=== PATIENT | male | born 1940 | race Caucasian/White ===

== ENCOUNTER 2024-04-22 13:16 | Inpatient (IN) | payer MEDICARE, SELFPAY ==
[2024-04-22] VITALS (18 sets, daily range): BP systolic 147–165; BP diastolic 54–94; PULSE 63–82; RESP 10–24; TEMP 36.1–36.6; O2SAT 94–99; BMI 28.0
--- NOTE | ~2024-04-22 | MR_ITS ---
EXAMINATION: MR brain/brain stem wo/w con DATE: 04/23/2024 07:57 INDICATION: Cerebrovascular accident. TECHNIQUE: Magnetic resonance imaging (MRI) of the brain and brainstem was performed without and with 17 mL MultiHance intravenous contrast. COMPARISON: Head CT 04/14/2024 FINDINGS: There is an acute infarct involving left frontal lobe and left insula. Decreased T2*-weight ed signal intensity in this volume may be calcification or microhemorrhage. There is an old infarct i n left frontoparietal region. There is no abnormal mass lesion. There are scattered areas of nonspeci fic increased T2-weighted signal intensity in the cerebral white matter, which is within normal limit s for the patient's age. The ventricles are normal in size. The orbits are normal. The paranasal sinu ses are clear. The mastoid air cells are normal. IMPRESSION: 1. Acute infarct involving left frontal lobe and left insula. Decreased T2*-weighted signal intensity in this volume may be calcification or microhemorrhage. 2. Old infarct in left frontoparietal region. Reviewed, dictated and finalized at location A. IMPRESSION: 1. Acute infarct involving left frontal lobe and left insula. Decreased T2*-lazaro ghted signal intensity in this volume may be calcification or microhemorrhage. 2. Old infarct in left frontoparietal region.
--- NOTE | ~2024-04-22 | US_ITS ---
EXAMINATION: US venous doppler [facility] DATE: 04/23/2024 08:46 INDICATION: Lower limb pain and edema. TECHNIQUE: Grayscale ultrasound images without and with compression and Doppler ultrasound images of the bilateral lower extremity veins were obtained. COMPARISON: None. FINDINGS: The visualized portions of right common femoral vein, profunda (deep) femoral vein, femoral vein, pop liteal vein, peroneal veins, posterior tibial veins, and greater saphenous vein outflow are patent. The visualized portions of left common femoral vein, profunda femoral vein, femoral vein, popliteal v ein, peroneal veins, posterior tibial veins, and greater saphenous vein outflow are patent. IMPRESSION: 1. No deep venous thrombosis. Reviewed, dictated and finalized at location A.
--- NOTE | ~2024-04-22 | CT_ITS ---
CTA brain carotid Ordering provider: Teodoro Muniz MD History: . CVA . Comparison: None. Technique: CT angiogram head and neck was performed following timed intravenous injection of contrast . Thin slice axial images and reformatted coronal images were obtained. Three dimensional reformatted images of the brain were also obtained using a [employer] workstation. Radiation reduction technique ut ilized. DLP is 1793.21 mGy-cm. 100 mL Omnipaque 350 was given IV. FINDINGS: HEAD: --ANTERIOR AND MIDDLE CEREBRAL ARTERIES AND BRANCHES: Normal caliber and contour. --INTERNAL CAROTID ARTERIES: Mild atheromatous disease but no significant stenosis. No occlusion. --BASILAR ARTERY AND BRANCHES: Dominant left vertebral artery. Normal caliber and contour. No atherom atous disease. --POSTERIOR CEREBRAL ARTERIES: Normal caliber and contour --POSTERIOR COMMUNICATING ARTERIES: The right isn't demonstrated. The left is not visualized which is probably related to congenital absence or small size. --ANEURYSM: None visualized. --BRAIN: Deep white matter ischemic changes with mild brain atrophy. No acute intracranial process. E mpty sella turcica. --BONES AND SUPERFICIAL SOFT TISSUES: Normal.. --PARANASAL SINUSES AND MASTOIDS: Normal. NECK: --RIGHT CERVICAL CAROTID SYSTEM: Mild atheromatous disease of the carotid bulb and proximal internal carotid artery without significant stenosis. Percent stenosis per NASCET criteria is 60%. No carotid dissection. Otherwise, no significant atheromatous disease or stenosis of the cervical carotid syste m. --LEFT CERVICAL CAROTID SYSTEM: Mild atheromatous disease of the carotid bulb and proximal internal c arotid artery without significant stenosis. Percent stenosis per NASCET criteria is 40%. No carotid dissection. Otherwise, no significant atheromatous disease or stenosis of the cervical carotid system. --VERTEBRAL ARTERIES: Dominant left vertebral artery. Otherwise, Normal caliber and contour. --VISUALIZED AORTIC ARCH AND BRANCHING VESSELS: Mild atheromatous disease but no significant stenosis . --SOFT TISSUES: Normal. --CERVICAL SPINE: Age appropriate degenerative changes. IMPRESSION: 1. CTA head and neck. Percent stenosis per NASCET criteria is 60% on the right and 40% on the left. 2. No evidence of intracerebral arterial occlusion or significant stenosis. Reviewed, dictated and finalized at location A. IMPRESSION: 1. CTA head and neck. Percent stenosis per NASCET criteria is 60% on the righ t and 40% on the left. 2. No evidence of intracerebral arterial occlusion or significant stenosis.
--- NOTE | 2024-04-22 13:19 | ED.NEUROSD ---
HPI - Neuro Symptoms/Deficit General Chief Complaint: Suspected CVA Stated Complaint: cva History of Present Illness HPI Narrative: 83-year-old male prior history of CVA presented emergency department for evaluation for confusion and speech change. Apparently patient's brother last saw the patient at 8:30 a.m. this morning and he was at his normal baseline. Patient's got home from being out of town at 12:30 p.m. found him altered. Patient's arrival to the emergency department was greater than 4.5 hours after time of onset. Patient is able to follow some commands and has no focal deficit for arms or legs but does have facial droop with speech deficit. Patient does take Plavix. Patient had previously stopped his aspirin due to increased bleeding from minor injuries. Related Data Home Medications Medication Instructions Recorded Confirmed amlodipine 10 mg tablet 10 mg PO DAILY 04/22/24 04/22/24 atorvastatin 80 mg tablet 80 mg PO DAILY 04/22/24 04/22/24 blood sugar diagnostic ([id number] 04/22/24 04/22/24 Ultra Test strips) clopidogrel 75 mg tablet 75 mg PO DAILY 04/22/24 04/22/24 gabapentin 100 mg capsule 100 mg PO DAILY 04/22/24 04/22/24 insulin degludec 200 unit/mL (3 See Rx Instructions .Route .COMPLEX 04/22/24 04/22/24 mL) subcutaneous pen (Tresiba FlexTouch U-200 insulin) metformin 500 mg tablet,extended 500 mg PO DAILY 04/22/24 04/22/24 release 24 hr Allergies Allergy/AdvReac Type Severity Reaction Status Date / Time gemfibrozil Allergy Difficulty Verified 04/22/24 14:58 Breathing lisinopril Allergy Anaphylaxis Verified 04/22/24 14:58 Review of Systems Review of Systems: All systems reviewed & are unremarkable except as noted in HPI and below PMFSH Past Medical History Medical History (Updated 04/22/24 @ 15:58 by Samara Stock PA-C) Bilateral carotid artery stenosis Cerebrovascular accident Hyperlipidemia Hypertension Prostate cancer Type 2 diabetes mellitus Surgical History Surgical History (Updated 04/22/24 @ 15:50 by Samara Stock PA-C) History of prostatectomy Family History Family History Other Diabetes mellitus Hypertension Social History Social History (Updated 04/22/24 @ 15:55 by Samara Stock PA-C) Social History: Healthcare power of attorney at law: Robel Vaz, son. Code status: Full code. Years smoked: 20 Smoking status: Former smoker Tobacco type: cigarettes Second hand tobacco smoke exposure: No Additional smoking assessment comments: Remote smoker. Alcohol intake: current Drinks per week: 14 Alcohol use details: Drinks a 6 pack of beer most nights of the week. Substance use: never Do You Feel Safe in your Home?: Yes Lack of Transportation: No Lack of Food: Never True Current Housing: I Have Housing Concerned About Future Housing: No Difficulty Paying Gas/Electric Bills: No Difficulty Paying for Meds: No Currently Unemployed: No Education: High School Diploma/GED Difficulty w/ Childcare or Family Care: No Additional living arrangements comments: Lives with son Robel and [id number]-fzj Edith in [place]. 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 Exam Narrative: APPEARANCE: Well appearing, no pain, no distress, well-nourished. HEAD: normocephalic, atraumatic. EYES: PERRLA/EOMI, conjunctivae clear. NOSE: Normal no drainage EARS:TMS clear with good light reflex. THROAT: Pharynx clear, no exudate. NECK: Supple. No adenopathy, no masses. RESPIRATORY: Airway patent, respirations nonlabored. Clear to auscultation bilaterally, no rales, rhonchi, wheezing. CARDIOVASCULAR: Regular rate and rhythm without murmurs rubs or gallops. ABDOMINAL: Soft, nontender, nondistended, normal bowel sounds MUSCULOSKELETAL: Moves all extremities. Strength/ROM intact, No edema, No calf tenderness. NEURO: No focal defici
[2024-04-22 13:27] LABS: Basophils Percent Auto 0.3 % (0.2-1.2); Eosinophils Absolute Auto 0.2 K/mm3 (0-0.3); Eosinophils Percent Auto 1.6 % (0-4.4); Hemoglobin 14.8 g/dL (14.0-18.0); Immature Granulocyte Absolute 0.01 K/mm3 (0.00-0.031); Immature Granulocyte Percent A 0.1 % (0-0.5); Lymphocytes Absolute Auto 3.61 K/mm3 (0.9-3.2); Lymphocytes Percent Auto 37.6 % (18.3-44.2); Mean Corpuscular HGB Conc 34.4 g/dl (32-36); Mean Corpuscular Hemoglobin 32.9 pg (26-34); Mean Corpuscular Volume 95.6 fl (80-100); Mean Platelet Volume 10.7 fl (7.4-10.4); Monocytes Absolute Auto 0.5 K/mm3 (0.1-0.6); Monocytes Percent Auto 5.5 % (2.6-8.5); Neutrophils Absolute Auto 5.3 K/mm3 (1.3-6.7); Neutrophils Percent Auto 54.9 % (45.5-73.1); Platelet Count Result 145 k/mm3 (150-375); Red Cell Distribution Width 13.4 % (11.5-14.5); White Blood Count 9.6 K/mm3 (4.5-10.0)
--- NOTE | 2024-04-22 13:29 | ECG_ITS ---
Test Date: 2024-04-22 13:21:00 Measurements Intervals [place] Rate: P: 0 OK: 0 QRS: 0 QRSD: 0 T: 0 QT: 0 QTc: 0 Interpretive Statements SINUS RHYTHM ATRIAL PREMATURE COMPLEX DELAYED PRECORDIAL R/S TRANSITION BASELINE ARTIFACT- I, II, AVR, V1-V6 BORDERLINE ECG No previous ECG available for comparison Electronically Signed On 04-22-2024 15:12:57 CDT by Rafa Herr D.O.
[2024-04-22 13:35] LABS: Estimated Glomerular Filt Rate > 60
[2024-04-22 13:36] LABS: Alanine Aminotransferase 25 U/L (6-50); Albumin Level 4.7 g/dL (3.5-5.1); Alkaline Phosphatase 53 U/L (38-126); Anion Gap 10 mmol/L (4-12); Aspartate Amino Transferase 26 U/L (17-59); Bilirubin,Total 0.7 mg/dL (0.2-1.3); Blood Urea Nitrogen 12 mg/dL (9-20); Calcium 9.4 mg/dL (8.4-10.2); Carbon Dioxide 28 mmol/L (22-30); Chloride 97 mmol/L (98-107); Estimated Glomerular Filt Rate > 60; Glucose 197 mg/dL (65-110); Potassium 4.4 mmol/L (3.4-5.0); Sodium 135 mmol/L (137-145)
[2024-04-22 13:37] LABS: Prothrombin Time 13.4 Seconds (11.1-14.7)
[2024-04-22 13:38] LABS: Partial Thromboplastin Time 24.6 Seconds (22.3-36.8)
--- NOTE | 2024-04-22 13:40 | PC.NURSE ---
Per Son, patient had lost some strength and sensation in right upper arm from previous stroke.
--- NOTE | 2024-04-22 14:28 | PM.IMHP ---
H&P: HPI History of Present Illness Date/Time: 04/22/24 14:30 Chief Complaint: Difficulties speaking. Narrative: This is a very pleasant 83-year-old male with history of stroke with very mild residual paresthesias in the right hand, hypertension, hyperlipidemia, and type 2 diabetes mellitus who presented to the emergency department via EMS from home for evaluation of difficulties speaking. He is able to provide some history however that is limited due to his speech disturbances and his son and eakmahqi-zl-icj provide additional information with the patient's permission. The patient lives with his son Robel and his xasjmnyd-sj-gmm Edith and they were out of town camping this weekend. Another son has been checking up on him and last saw the patient in his usual state of health at about 08:30 today. Robel and Edith returned home at about 12:30 and the patient was sitting in a recliner watching television. It was at that time they noticed his speech disturbance and a majority of the things that he utters is not coherent. On arrival to triage he apparently had a right-sided facial droop though that is not evident at the time my evaluation. He is able to get a few words out here and there which son states is an improvement. There are no other obvious deficits and the patient denies vertigo, vision changes, difficulty swallowing, focal weakness, and worsening paresthesias in his right hand. He also denies palpitations and sensations of irregular heartbeat. He has not had any recent illnesses or falls. In the ED: He was afebrile on arrival with a blood pressure of 156/71. EKG showed a sinus rhythm with occasional PACs and delayed R/S transition. Labs were significant for WBC count of 9.6, hemoglobin 14.8, platelet 145, sodium 135, chloride 97, glucose 197. CTA of the head and neck showed no evidence of intracerebral arterial occlusion or significant stenosis and% stenosis per NASCET is 60% on the right and 40% on the left. Deep white matter ischemic changes with mild brain atrophy were noted as well as an empty sella turcica with no acute intracranial process. He is outside of the window for thrombolytics and CTA showed no findings that would need to be intervened upon. Dr. Ibarra (on-call neurologist) recommends admission for close monitoring and further workup. The patient was given aspirin 324 mg (he took his morning clopidogrel 75 mg today) and he is being admitted in this setting. Review of Systems Review of Systems: 12 systems were reviewed and are negative except for as per HPI. [facility] Past Medical History Medical History (Updated 04/22/24 @ 15:58 by Samara Stock PA-C) Bilateral carotid artery stenosis Cerebrovascular accident Hyperlipidemia Hypertension Prostate cancer Type 2 diabetes mellitus Surgical History Surgical History (Updated 04/22/24 @ 15:50 by Samara Stock PA-C) History of prostatectomy Family History Family History Other Diabetes mellitus Hypertension Social History Social History (Updated 04/22/24 @ 15:55 by Samara Stock PA-C) Social History: Healthcare power of trial attorney: Robel Vaz, son. Code status: Full code. Smoking status: Former smoker Additional smoking assessment comments: Remote smoker. Alcohol intake: current Alcohol use details: Drinks a 6 pack of beer most nights of the week. Substance use: never Additional living arrangements comments: Lives with son Robel and [id number] Edith in [place]. 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 Meds Home Medications and Allergies Allergies Allergy/AdvReac Type Severity Reaction Status Date / Time gemfibrozil Allergy Difficulty Verified 04/22/24 14:58 Breathing lisinopril Allergy Anaphylaxis Verified 04/22/24 14:58 Vital Signs Vital Signs - 24 hr 04/22/24 13:17 04/22/24 13:25 04/22/24 13:36 Temp
[2024-04-22 14:29] LABS: Appearance Urine Clear (Clear); Bilirubin Urine Negative (Negative); Blood Urine Negative (Negative); Color Urine Yellow (Yellow); Glucose Urine UA 1+ mg/dL (Negative); Ketones Urine Negative (Negative); Leukocyte Esterase Ur Negative LEU/UL (Negative); Nitrate Urine Negative (Negative); Protein Urine Negative (Negative); Specific Grav Ur 1.022 (1.001-1.035); Urobilinogen Urine 0.2 mg/dL (<2.0); pH Urine 7.5 (5.0-9.0)
[2024-04-22 14:30] LABS: Add Urine Microscopic? NO
[2024-04-22] MEDS: ASPIRIN 81 MG CHEWABLE TABLET 324 MG PO (14:53)
--- NOTE | 2024-04-22 14:55 | PC.NURSE ---
Per madyson Alonso for patient to have PO aspirin
--- NOTE | 2024-04-22 15:33 | ADMGEN ---
This patient, Jose Vaz, was admitted to 2 Medical Room 253-01. Patient/family oriented to hospital policies and general routines including ID bracelet, bed and alarms, visiting hours, pain management, procedures, bathroom and other care routines, personal items, smoking policy, room service/diet, and visiting hours. Information on how to activate the Rapid Response Team has been discussed. Patient/Family are encouraged to report perceived risks to care and to ask questions if they do not understand what they are told or what they should do.
[2024-04-22 16:49] LABS: Glucose Point of Care 124 mg/dl (65-105)
[2024-04-22 19:58] LABS: Glucose Point of Care 144 mg/dl (65-105)
[2024-04-23] VITALS (9 sets, daily range): BP systolic 134–155; BP diastolic 59–72; PULSE 61–96; RESP 16–18; TEMP 36.2–36.4; O2SAT 95–98
--- NOTE | 2024-04-23 | ECHO_ITS ---
Patient Info Name: Jose Vaz Age: 83 years : 1940 Gender: Male Ht: 70 in Wt: 195 lbs BSA: 2.11 m2 HR: 72 bpm BP: 155 / 60 mmHg Heart Rhythm: Sinus Rhythm Technical Quality: Good Exam Date: 04/23/2024 11:54 AM Exam Location: Echo Lab Patient Status: Inpatient Admit Date: 04/22/2024 Staff Ordering Physician: Samara Stock PA-C Boatswains Mate: Jyoti Long RDCS Attending Provider: Kelechi Maher MD Referring Physician: Dayami PARDO; Exam Type: CA echo doppler w bubble study Study Info Indications - STROKE Complete two-dimensional, color flow and Doppler transthoracic echocardiogram is performed. Summary 1. Complete two-dimensional, color flow and Doppler transthoracic echocardiogram is performed. 2. Normal left ventricular size and systolic contractility with grade 1 diastolic noncompliance. 3. Mild left atrial enlargement. 4. Mildly calcified mitral valve annular. 5. No valvular dysfunction. 6. No shunt seen on agitated saline contrast injection. Left Ventricle Left ventricular chamber dimension is normal. Left ventricular systolic function is normal, estimated at 60-65%. The left ventricular diastolic function is grade I diastolic dysfunction. Right Ventricle Right ventricular chamber dimension is normal. Left Atria Left atrial chamber dimension is mildly enlarged. Right Atria Right atrial chamber dimension is normal. Atrial Septum Intact interatrial septum visualized by agitated saline imaging. Aortic Valve The aortic valve is trileaflet. There is mild aortic valve sclerosis. Pulmonic Valve The pulmonic valve is normal. Mitral Valve The mitral valve has normal leaflets. The mitral valve annulus is mildly calcified. Tricuspid Valve The tricuspid valve leaflets are normal. Pericardium/Pleural The pericardium appears normal. Aorta The aortic root size at the sinus of Valsalva is normal. Left Ventricular Outflow Tract Name Value Normal LVOT 2D LVOT Diameter 2.0 cm LVOT Doppler LVOT Peak Gradient 4 mmHg LVOT Mean Gradient 2 mmHg LVOT VTI 30 cm LVOT VTI/AV VTI Ratio 0.9 LVOT Stroke Volume 96 ml LVOT CO 5.9 l/min LVOT CI 2.8 l/min/m2 Pulmonic Valve Name Value Normal PV Doppler PV Peak Gradient 3 mmHg Mitral Valve Name Value Normal MV Doppler MV Decel [place] 284 cm/s2 MV PHT 79 ms MV Area (PHT) 2.8 cm2 4.0-5.0 MV Di
[2024-04-23 05:21] LABS: Hemoglobin A1C 6.8 % (<5.7)
[2024-04-23 05:24] LABS: Anion Gap 8 mmol/L (4-12); Blood Urea Nitrogen 9 mg/dL (9-20); Calcium 9.2 mg/dL (8.4-10.2); Carbon Dioxide 31 mmol/L (22-30); Chloride 97 mmol/L (98-107); Cholesterol 135 mg/dL (0-200); Estimated CRCL calculation 69 ml/min; Estimated Glomerular Filt Rate > 60; Glucose 75 mg/dL (65-110); HDL Direct 56 mg/dL; Potassium 3.7 mmol/L (3.4-5.0); Sodium 136 mmol/L (137-145); Triglycerides 109 mg/dL (<150)
[2024-04-23 05:35] LABS: LDL Cholesterol Direct 46 mg/dL
--- NOTE | 2024-04-23 07:25 | PC.NURSE ---
Patient off unit for MRI.
--- NOTE | 2024-04-23 08:10 | PM.IMPN ---
Subjective Date/time seen: 04/23/24 08:10 Interval history: sdf Objective Data Vital Signs Vital Signs: Vital Signs - 24 hr 04/22/24 13:17 04/22/24 13:25 04/22/24 13:36 Temperature 97.8 F Pulse Rate 82 82 75 Respiratory Rate 17 12 Blood Pressure 156/71 H 156/72 H Pulse Oximetry 98 95 Oxygen Delivery 04/22/24 13:42 04/22/24 13:45 04/22/24 13:47 Temperature Pulse Rate 74 81 81 Respiratory Rate 10 L 21 H 15 Blood Pressure 165/94 H Pulse Oximetry Oxygen Delivery 04/22/24 14:00 04/22/24 14:32 04/22/24 14:33 Temperature Pulse Rate 68 81 77 Respiratory Rate 13 24 H 20 Blood Pressure 150/73 H Pulse Oximetry Oxygen Delivery 04/22/24 14:45 04/22/24 14:46 04/22/24 14:47 Temperature Pulse Rate 81 81 79 Respiratory Rate 19 13 18 Blood Pressure 158/75 H Pulse Oximetry 96 Oxygen Delivery 04/22/24 15:05 04/22/24 15:37 04/22/24 18:06 Temperature 97.9 F Pulse Rate 76 74 Respiratory Rate 16 18 Blood Pressure 155/81 H 147/55 H Pulse Oximetry 95 98 99 Oxygen Delivery Room Air 04/22/24 18:57 04/22/24 19:55 04/22/24 20:00 Temperature 97.0 F L Pulse Rate 67 63 63 Respiratory Rate 16 Blood Pressure 151/54 H Pulse Oximetry 94 Oxygen Delivery 04/22/24 20:00 04/23/24 00:00 04/23/24 04:00 Temperature Pulse Rate 61 67 Respiratory Rate Blood Pressure Pulse Oximetry Oxygen Delivery Room Air 04/23/24 06:00 Temperature 97.6 F Pulse Rate 72 Respiratory Rate 18 Blood Pressure 155/60 H Pulse Oximetry 98 Oxygen Delivery Intake/Output Intake/Output: Intake & Output 04/20/24 04/21/24 04/22/24 04/23/24 23:59 23:59 23:59 23:59 Intake Total 120 480 Balance 120 480 Meds/Results Medications: Active Medications Generic Name Dose Route Start Last Admin Trade Name Freq PRN Reason Stop Dose Admin Acetaminophen 650 mg 04/22/24 16:06 Acetaminophen 325 Mg Tablet PO Q6H PRN Mild Pain (1-3) or Fever Amlodipine Besylate 10 mg 04/23/24 09:00 Amlodipine Besylate 10 Mg Tablet PO DAILY [facility] Aspirin 81 mg 04/23/24 08:00 Aspirin 81 Mg Chewable Tablet PO DAILY@0800 [facility] Atorvastatin Calcium 80 mg 04/23/24 09:00 Atorvastatin 40 Mg Tablet PO DAILY [facility] Clopidogrel Bisulfate 75 mg 04/23/24 09:00 Clopidogrel Bisulfate 75 Mg Tablet PO DAILY [facility] Dextrose 12.5 gm 04/22/24 16:06 Dextrose 50% 25 Gm/50 Ml Syringe IV PUSH PRN PRN Hypoglycemia Protocol Gabapentin 100 mg 04/23/24 09:00 Gabapentin 100 Mg Capsule PO DAILY [facility] Glucagon 1 mg 04/22/24 16:06 Glucagon For Inj 1 Mg Vial IM PRN PRN Hypoglycemia Protocol Glucose 15 gm 04/22/24 16:06 Glucose Oral Gel 15 Gm Of Glucse In 37.5 Gm Tube PO PRN PRN Hypoglycemia Protocol Dextrose 1,000 mls @ 100 mls/hr 04/22/24 16:06 Dextrose 5% 1,000 Ml IVPB PRN PRN Hypoglycemia Protocol Insulin Aspart 2 - 5 units 04/22/24 17:00 04/22/24 18:59 Insulin Aspart (*Bkc) 100 Units/Ml SUB-Q Not Given TIDWM [facility] Protocol Insulin Aspart 1 - 2 units 04/22/24 21:00 04/22/24 20:18 Insulin Aspart (*Bkc) 100 Units/Ml SUB-Q Not Given HS [facility] Protocol Perflutren Lipid Microsphere 0 ml 04/22/24 16:06 Perflutren Lipid Microspheres 1.5 Ml Vial Diluted To 10 Ml Total Volume IV PUSH 04/25/24 16:06 ONCE PRN adequate visualization Protocol Radiology Results: ITS Impressions Head/Neck CTA 04/22/24 14:01 IMPRESSION: 1. CTA head and neck. Percent stenosis per NASCET criteria is 60% on the right and 40% on the left. 2. No evidence of intracerebral arterial occlusion or significant stenosis. Brain MRI 04/23/24 07:59 IMPRESSION: 1. Acute infarct involving left frontal lobe and left insula. Decreased T2*-weighted signal intensity in this volume may be calcification or microhemorrhage. 2. O
--- NOTE | 2024-04-23 08:44 | PC.NURSE ---
Patient returned to unit for MRI
[2024-04-23 08:52] LABS: Glucose Point of Care 87 mg/dl (65-105)
[2024-04-23] MEDS: GABAPENTIN 100 MG CAPSULE PO (09:25)
[2024-04-23] MEDS: amLODIPine BESYLATE 10 MG TABLET PO (09:25)
--- NOTE | 2024-04-23 11:20 | WPDNEURCNPN ---
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 (CVA): Code(s): I63.9 - Cerebral infarction, unspecified; R47.01 - Aphasia Status: Acute Assessment and Plan: patient has features of mixed aphasia with greater involvement of the expressive component (3) Type 2 diabetes mellitus: Code(s): E11.9 - Type 2 diabetes mellitus without complications Status: Acute (4) Hypertension: Code(s): I10 - Essential (primary) hypertension Status: Acute (5) Hyperlipidemia: Code(s): E78.5 - Hyperlipidemia, unspecified Status: Acute Plan I reviewed the current workup including MRI of the brain and CT angiogram of the head and neck and blood work including lipid profile appear platelet count was slightly low at 145. Patient should continue with the statin and Lipitor and with speech therapy. He has good support from the family Robel and Kenneth and I spoke to Edith about the stroke from neurologic perspective advised her to work with the speech therapist in this regard. Echocardiogram results pending. Patient however in her regular sinus rhythm. Last LDL was 46. Thank you very much for allowing me to see this patient. Consult date: 04/23/24 HPI: Jose Vaz is a 83 year old male Admitted to the hospital with onset of difficulty with speech which still has not resolved. History of previous stroke with a residual right hand weakness. Patient daughter in-law Edith was present at the time of the evaluation. Patient lives with his son Robel and daughter in-law. The patient has a significant difficulty understanding or saying what he wants to say or even reading except on occasion he may read part of the word have or a word but difficulty and making several errors. He did manage to say his mfhosudr-ry-lde's name and upon her command was able to show the tongue. Patient has hearing problems and he just received his hearing aid back this morning in-hospital and this info of course help. the day of admission his family report that he was okay at 8:30 a.m. in the morning when the left him and when they returned at 12:30 p.m. in the early afternoon he was not able to talk clearly. There are no other new neurologic symptoms specifically no additional weakness in the upper lower limbs was reported. He was brought to the hospital and CT angiogram head and neck was performed which shows 60% narrowing of the right internal carotid artery and 40% the left internal carotid artery. Subsequently MRI of the brain was performed which shows the left frontal and insular infarct and several old infarcts were noted. Patient also history of carcinoma of prostate and diabetes mellitus. His LDL was around 46 and he was found to be in regular sinus rhythm. There is no history of previous myocardial infarction or cardiac arrhythmia. He is currently on aspirin Plavix and Lipitor. He does drink 6 beers a day but does not smoke. Hemoglobin A1c was 6.8. Review of Systems Review of Systems: according to patient's daughter in-law he was in usual State of health prior to the onset of the new symptoms affecting his speech. He has been fairly active and does take care of his own personal needs well. The patient himself is unable to give me any details of the symptoms however he is fairly awake and alert and does try to concentrate and listen to the given commands. ROS unobtainable: Yes other [facility] Past Medical History Medical History (Updated 04/23/24 @ 11:32 by Jose Manuel Cobos MD) Aphasia due to acute cerebro
[2024-04-23 12:11] LABS: Glucose Point of Care 106 mg/dl (65-105)
--- NOTE | 2024-04-23 12:38 | PCPTNOTE ---
On 04/23/24, the student, [Shama Redding], provided care and completed [facility] documentation on this patient. I have reviewed the student's documentation and agree with the findings.
--- NOTE | 2024-04-23 14:25 | PM.IMPN ---
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 (CVA): Code(s): I63.9 - Cerebral infarction, unspecified; R47.01 - Aphasia Status: Acute (2) Left acute arterial ischemic stroke, MCA (middle cerebral artery): Code(s): I63.512 - Cerebral infarction due to unspecified occlusion or stenosis of left middle cerebral artery Status: Acute (3) Bilateral carotid artery stenosis: Code(s): I65.23 - Occlusion and stenosis of bilateral carotid arteries Status: Acute (4) Type 2 diabetes mellitus: Qualifiers: Diabetes mellitus complication detail: with unspecified neuropathy Diabetes mellitus complication status: with neurologic complications Diabetes mellitus custodial insulin use: with long winder tender use Qualified Code(s): E11.40 - Type 2 diabetes mellitus with diabetic neuropathy, unspecified; Z79.4 - senior care (current) use of insulin Code(s): E11.9 - Type 2 diabetes mellitus without complications Status: Acute (5) Hyperlipidemia: Qualifiers: Hyperlipidemia type: other hyperlipidemia Qualified Code(s): E78.49 - Other hyperlipidemia Code(s): E78.5 - Hyperlipidemia, unspecified Status: Acute (6) Hypertension: Qualifiers: Hypertension type: unspecified Qualified Code(s): I10 - Essential (primary) hypertension Code(s): I10 - Essential (primary) hypertension Status: Acute (7) Dysphasia: Code(s): R47.02 - Dysphasia Status: Acute (8) Cerebrovascular accident: Qualifiers: CVA mechanism: unspecified Qualified Code(s): I63.9 - Cerebral infarction, unspecified Code(s): I63.9 - Cerebral infarction, unspecified Status: Acute Plan The patient was admitted on 04/22 for evaluation of difficulty speaking .Pt had multiple CVA starting from the year 2017. During current admission, head and neck CTA did not show any large vessel occlusions however did show bilateral internal carotid artery stenosis (60% on the right and 40% on the left) . MRI done 04/23/2024 shows Acute infarct involving left frontal lobe and left insula. Decreased T2*-weighted signal intensity in this volume may be calcification or microhemorrhage. Old infarct in left frontoparietal region. Neurology was consulted and advised to continue on clopidogrel 75 mg daily, aspirin 81 mg daily,atorvastatin 80mg daily and speech therapy. Following PT/OT/ST recs. Echocardiogram ordered and still pending; he has no known history of symptoms to suggest underlying or paroxysmal atrial fibrillation. Blood pressures were reviewed and advised to continue the current medications. Hold metformin as he received IV contrast. Continue sliding scale insulin, Accu-Cheks, and hypoglycemic protocol. Hemoglobin A1c 6.8%. Findings and treatment plan were discussed with the patient and his htykakel-zp-lia who were at bedside with the patient's permission. On the event of discharge patient needs to follow up with Neurologist within 2 months and speech therapy as well. Subjective Date/time seen: 04/23/24 14:25 Interval history: This is a very pleasant 83-year-old male with history of stroke with very mild residual paresthesias in the right hand, hypertension, hyperlipidemia, and type 2 diabetes mellitus who presented to the emergency department via EMS from home for evaluation of difficulties speaking. He is able to provide some history however that is limited due to his speech disturbances and his son and [id number] provide additional information with the patient's permission. The patient lives with his son Robel and his hcwyhvmb-me-ulx Edith and they were out of town camping this weekend. Another son has been checking up on him and last saw the patient in his usual state of health at about 08:30 today. Robel and Edith returned home at about 12:30 and the patient was sitting in a recliner watching television. It was at that time they
[2024-04-23 17:12] LABS: Glucose Point of Care 96 mg/dl (65-105)
[2024-04-23] MEDS: LORazepam INJ (*CRX) 2 MG/ML VIAL 0.5 MG IV PUSH (17:53)
[2024-04-23 20:22] LABS: Glucose Point of Care 163 mg/dl (65-105)
[2024-04-24] VITALS (10 sets, daily range): BP systolic 114–148; BP diastolic 53–78; PULSE 59–80; RESP 16–18; TEMP 36–36.6; O2SAT 95–100
--- NOTE | 2024-04-24 04:44 | PC.NURSE ---
Patient activated bed alarm while exiting his bed; Patient sitter present in room and unable to redirect patient. RN attempted to assist, patient became combative, grabbed the RN's wrist and attempted to push RN into the hallway; staff experienced difficulty in redirecting patient behaviors. Patient ambulated into the hallway and was resistant to returning to his room. nursing instructor notified and assisted in redirecting patient back to his room. Will continue to monitor.
[2024-04-24] MEDS: ATORVASTATIN 40 MG TABLET 80 MG PO (09:00)
[2024-04-24] MEDS: amLODIPine BESYLATE 10 MG TABLET PO (09:00)
[2024-04-24] MEDS: GABAPENTIN 100 MG CAPSULE PO (09:01)
[2024-04-24] MEDS: CLOPIDOGREL BISULFATE 75 MG TABLET PO (09:01)
[2024-04-24] MEDS: ASPIRIN 81 MG CHEWABLE TABLET PO (09:01)
[2024-04-24 09:09] LABS: Glucose Point of Care 174 mg/dl (65-105)
--- NOTE | 2024-04-24 09:40 | PM.DS ---
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 He is able to provide some history however that is limited due to his speech disturbances and his son and [id number]-by-dzd provide additional information with the patient's permission. The patient lives with his son Robel and his xvycdluq-id-ash Edith and they were out of town camping this weekend. Another son has been checking up on him and last saw the patient in his usual state of health at about 08:30 today. Robel and Edith returned home at about 12:30 and the patient was sitting in a recliner watching television. It was at that time they noticed his speech disturbance and a majority of the things that he utters is not coherent. On arrival to triage he apparently had a right-sided facial droop though that is not evident at the time my evaluation. He is able to get a few words out here and there which son states is an improvement. There are no other obvious deficits and the patient denies vertigo, vision changes, difficulty swallowing, focal weakness, and worsening paresthesias in his right hand. He also denies palpitations and sensations of irregular heartbeat. He has not had any recent illnesses or falls. In the ED: He was afebrile on arrival with a blood pressure of 156/71. EKG showed a sinus rhythm with occasional PACs and delayed R/S transition. Labs were significant for WBC count of 9.6, hemoglobin 14.8, platelet 145, sodium 135, chloride 97, glucose 197. CTA of the head and neck showed no evidence of intracerebral arterial occlusion or significant stenosis and% stenosis per NASCET is 60% on the right and 40% on the left. Deep white matter ischemic changes with mild brain atrophy were noted as well as an empty sella turcica with no acute intracranial process. He is outside of the window for thrombolytics and CTA showed no findings that would need to be intervened upon. Dr. Ibarra (on-call neurologist) recommends admission for close monitoring and further workup. The patient was given aspirin 324 mg (he took his morning clopidogrel 75 mg today) and he is being admitted in this setting. ----- MR brain brain stem w/o w/ contrast on 04/23 1. Acute infarct involving left frontal lobe and left insula. Decreased T2*-weighted signal intensity in this volume may be calcification or microhemorrhage. 2. Old infarct in left frontoparietal region. ok by neurology to start aspirin. cont STUDENT COUNSELLOR plavix and lipitor. surface echo on 04/23: Summary 1. Complete two-dimensional, color flow and Doppler transthoracic echocardiogram is performed. 2. Normal left ventricular size and systolic contractility with grade 1 diastolic noncompliance. 3. Mild left atrial enlargement. 4. Mildly calcified mitral valve annular. 5. No valvular dysfunction. 6. No shunt seen on agitated saline contrast injection. lipid panel obtained. pt to follow up with neurology, PCP, and vascular surgery. discharged in stable condition to [facility] on 04/24 Time Spent with Patient Time attestation: Total time spent providing and/or coordinating discharge services: Time spent: Greater than 30 minutes Exam Const: General: comfortable and no acute distress HENMT: Mouth: Yes moist mucous membranes Eyes: Pupils:
[2024-04-24 11:39] LABS: Glucose Point of Care 140 mg/dl (65-105)
--- NOTE | 2024-04-24 12:19 | PCPTNOTE ---
Attempted to see patient for Physical Therapy. Patient was sleeping and patient's son was also in the room. Patient's son said that therapist could try waking him up. Therapist asked patient about participating in Physical Therapy. Patient fell back asleep after the therapist asked him. Patient's son reports that patient had a rough night last night. Patient's son stated that it was okay to keep letting him sleep. RN notified.
--- NOTE | 2024-04-24 14:11 | PCPTNOTE ---
Attempted to see patient for Physical Therapy this afternoon. Patient was laying in bed and his son was in the room. Therapist asked patient about walking or doing exercises and patient declined to do either. RN notified.
[2024-04-24 16:44] LABS: Glucose Point of Care 315 mg/dl (65-105)
[2024-04-24] MEDS: INSULIN ASPART (*BKC) 100 UNITS/ML SUB-Q (16:46)
[2024-04-24 21:53] LABS: Glucose Point of Care 174 mg/dl (65-105)
[2024-04-25] VITALS (10 sets, daily range): BP systolic 129–152; BP diastolic 54–68; PULSE 58–93; RESP 17–18; TEMP 36.5–36.7; O2SAT 95–98
[2024-04-25 07:51] LABS: Glucose Point of Care 152 mg/dl (65-105)
[2024-04-25] MEDS: amLODIPine BESYLATE 10 MG TABLET PO (08:54)
[2024-04-25] MEDS: ASPIRIN 81 MG CHEWABLE TABLET PO (08:54)
[2024-04-25] MEDS: GABAPENTIN 100 MG CAPSULE PO (08:54)
[2024-04-25] MEDS: ATORVASTATIN 40 MG TABLET 80 MG PO (08:54)
[2024-04-25] MEDS: CLOPIDOGREL BISULFATE 75 MG TABLET PO (08:54)
[2024-04-25 10:44] LABS: Glucose Point of Care 209 mg/dl (65-105)
--- NOTE | 2024-04-25 11:19 | PM.IMPN ---
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 (CVA): Code(s): I63.9 - Cerebral infarction, unspecified; R47.01 - Aphasia Status: Acute (2) Left acute arterial ischemic stroke, MCA (middle cerebral artery): Code(s): I63.512 - Cerebral infarction due to unspecified occlusion or stenosis of left middle cerebral artery Status: Acute (3) Bilateral carotid artery stenosis: Code(s): I65.23 - Occlusion and stenosis of bilateral carotid arteries Status: Acute (4) Type 2 diabetes mellitus: Qualifiers: Diabetes mellitus care home insulin use: with intermediate manager use Diabetes mellitus complication status: with neurologic complications Diabetes mellitus complication detail: with unspecified neuropathy Qualified Code(s): E11.40 - Type 2 diabetes mellitus with diabetic neuropathy, unspecified; Z79.4 - terminal makeup operator (current) use of insulin Code(s): E11.9 - Type 2 diabetes mellitus without complications Status: Acute (5) Hyperlipidemia: Qualifiers: Hyperlipidemia type: other hyperlipidemia Qualified Code(s): E78.49 - Other hyperlipidemia Code(s): E78.5 - Hyperlipidemia, unspecified Status: Acute (6) Hypertension: Qualifiers: Hypertension type: unspecified Qualified Code(s): I10 - Essential (primary) hypertension Code(s): I10 - Essential (primary) hypertension Status: Acute (7) Dysphasia: Code(s): R47.02 - Dysphasia Status: Acute (8) Cerebrovascular accident: Qualifiers: CVA mechanism: unspecified Qualified Code(s): I63.9 - Cerebral infarction, unspecified Code(s): I63.9 - Cerebral infarction, unspecified Status: Acute Plan The patient was admitted on 04/22 for evaluation of difficulty speaking .Pt had multiple CVA starting from the year 2017. During current admission, head and neck CTA did not show any large vessel occlusions however did show bilateral internal carotid artery stenosis (60% on the right and 40% on the left) . MRI done 04/23/2024 shows Acute infarct involving left frontal lobe and left insula. Decreased T2*-weighted signal intensity in this volume may be calcification or microhemorrhage. Old infarct in left frontoparietal region. Neurology was consulted and advised to continue on clopidogrel 75 mg daily, aspirin 81 mg daily,atorvastatin 80mg daily and speech therapy. Following PT/OT/ST recs. Echocardiogram ordered and still pending; he has no known history of symptoms to suggest underlying or paroxysmal atrial fibrillation. Blood pressures were reviewed and advised to continue the current medications. Hold metformin as he received IV contrast. Continue sliding scale insulin, Accu-Cheks, and hypoglycemic protocol. Hemoglobin A1c 6.8%. Findings and treatment plan were discussed with the patient and his [id number]-zid who were at bedside with the patient's permission. On the event of discharge patient needs to follow up with Neurologist within 2 months and speech therapy as well. April 24: Continue aspirin 81 mg q.day, Plavix 75 mg q.day, atorvastatin 80 mg q.day. slight improvement in his speech. Continue therapy with physical occupational and speech therapy. [facility], care coordinators are ranging. Surface echocardiogram demonstrating grade 1 diastolic noncompliance O2 left ventricle, no shunt seen. Full code. SCDs. Heart healthy diet. Subjective Date/time seen: 04/24/2024 approximately 10:00 a.m. This is a progress note for April 24 Interval history: The patient rest comfortably in bed with his daughter at bedside. While he has expressive aphasia, gestures that he has no complaints. Daughter agrees. Believes his aphasia is slightly improved Review of Systems Review of Systems: All systems reviewed & are unremarkable except as noted in HPI and below (Subjective) Exam Const: Kofi
[2024-04-25 11:20] LABS: Glucose Point of Care 275 mg/dl (65-105)
[2024-04-25] MEDS: INSULIN ASPART (*BKC) 100 UNITS/ML SUB-Q ×2 (12:09→20:46)
--- NOTE | 2024-04-25 14:05 | PCOTNOTE ---
Attempted to see Patient this P.M. Patient sleeping at this time. Patient's son and daughter present. Per paraprofessional aide teacher, she assisted Patient with showering this A.M. Stated Patient completed on his own. Per Patient's family, stated he might have done this but they want therapy to assess the task for correct completion of task tomorrow morning. Patient's family state he is performing with confusion of what items are and for example, he picked up the brush and was going to brush teeth.
--- NOTE | 2024-04-25 15:54 | PM.IMPN ---
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 (CVA): Code(s): I63.9 - Cerebral infarction, unspecified; R47.01 - Aphasia Status: Acute (2) Left acute arterial ischemic stroke, MCA (middle cerebral artery): Code(s): I63.512 - Cerebral infarction due to unspecified occlusion or stenosis of left middle cerebral artery Status: Acute (3) Bilateral carotid artery stenosis: Code(s): I65.23 - Occlusion and stenosis of bilateral carotid arteries Status: Acute (4) Type 2 diabetes mellitus: Qualifiers: Diabetes mellitus mcc insulin use: with terminal operations supervisor use Diabetes mellitus complication status: with neurologic complications Diabetes mellitus complication detail: with unspecified neuropathy Qualified Code(s): E11.40 - Type 2 diabetes mellitus with diabetic neuropathy, unspecified; Z79.4 - senior living (current) use of insulin Code(s): E11.9 - Type 2 diabetes mellitus without complications Status: Acute (5) Hyperlipidemia: Qualifiers: Hyperlipidemia type: other hyperlipidemia Qualified Code(s): E78.49 - Other hyperlipidemia Code(s): E78.5 - Hyperlipidemia, unspecified Status: Acute (6) Hypertension: Qualifiers: Hypertension type: unspecified Qualified Code(s): I10 - Essential (primary) hypertension Code(s): I10 - Essential (primary) hypertension Status: Acute (7) Dysphasia: Code(s): R47.02 - Dysphasia Status: Acute (8) Cerebrovascular accident: Qualifiers: CVA mechanism: unspecified Qualified Code(s): I63.9 - Cerebral infarction, unspecified Code(s): I63.9 - Cerebral infarction, unspecified Status: Acute Plan The patient was admitted on 04/22 for evaluation of difficulty speaking .Pt had multiple CVA starting from the year 2017. During current admission, head and neck CTA did not show any large vessel occlusions however did show bilateral internal carotid artery stenosis (60% on the right and 40% on the left) . MRI done 04/23/2024 shows Acute infarct involving left frontal lobe and left insula. Decreased T2*-weighted signal intensity in this volume may be calcification or microhemorrhage. Old infarct in left frontoparietal region. Neurology was consulted and advised to continue on clopidogrel 75 mg daily, aspirin 81 mg daily,atorvastatin 80mg daily and speech therapy. Following PT/OT/ST recs. Echocardiogram ordered and still pending; he has no known history of symptoms to suggest underlying or paroxysmal atrial fibrillation. Blood pressures were reviewed and advised to continue the current medications. Hold metformin as he received IV contrast. Continue sliding scale insulin, Accu-Cheks, and hypoglycemic protocol. Hemoglobin A1c 6.8%. Findings and treatment plan were discussed with the patient and his [id number] who were at bedside with the patient's permission. On the event of discharge patient needs to follow up with Neurologist within 2 months and speech therapy as well. April 24: Continue aspirin 81 mg q.day, Plavix 75 mg q.day, atorvastatin 80 mg q.day. slight improvement in his speech. Continue therapy with physical occupational and speech therapy. P[facility] to [facility], care coordinators are ranging. April 25: Discharge to rehab facility pending. Care coordinators arranging. Continue therapy. Surface echocardiogram demonstrating grade 1 diastolic noncompliance O2 left ventricle, no shunt seen. Full code. SCDs. Heart healthy diet. Subjective Date/time seen: 04/25/24 15:54 Interval history: No acute overnight events. He did not have be able disturbance again. Daughter believes his speech is improving somewhat. Review of Systems Review of Systems: All systems reviewed & are unremarkable except as noted in HPI and below (Subjective) Exam Const: General: comfortable and no acute dis
[2024-04-25 16:52] LABS: Glucose Point of Care 178 mg/dl (65-105)
[2024-04-25 20:23] LABS: Glucose Point of Care 236 mg/dl (65-105)
[2024-04-26] VITALS (8 sets, daily range): BP systolic 126–137; BP diastolic 57–71; PULSE 64–93; RESP 18; TEMP 36.6–36.8; O2SAT 97–100
[2024-04-26 08:13] LABS: Glucose Point of Care 181 mg/dl (65-105)
[2024-04-26] MEDS: ASPIRIN 81 MG CHEWABLE TABLET PO (08:27)
[2024-04-26] MEDS: CLOPIDOGREL BISULFATE 75 MG TABLET PO (08:27)
[2024-04-26] MEDS: amLODIPine BESYLATE 10 MG TABLET PO (08:27)
[2024-04-26] MEDS: ATORVASTATIN 40 MG TABLET 80 MG PO (08:27)
[2024-04-26] MEDS: GABAPENTIN 100 MG CAPSULE PO (08:27)
[2024-04-26 12:09] LABS: Glucose Point of Care 306 mg/dl (65-105)
[2024-04-26] MEDS: INSULIN ASPART (*BKC) 100 UNITS/ML SUB-Q (12:14)
--- NOTE | 2024-04-26 15:27 | PM.IMPN ---
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 (CVA): Code(s): I63.9 - Cerebral infarction, unspecified; R47.01 - Aphasia Status: Acute (2) Left acute arterial ischemic stroke, MCA (middle cerebral artery): Code(s): I63.512 - Cerebral infarction due to unspecified occlusion or stenosis of left middle cerebral artery Status: Acute (3) Bilateral carotid artery stenosis: Code(s): I65.23 - Occlusion and stenosis of bilateral carotid arteries Status: Acute (4) Type 2 diabetes mellitus: Qualifiers: Diabetes mellitus shelter insulin use: with intermodal customer service use Diabetes mellitus complication status: with neurologic complications Diabetes mellitus complication detail: with unspecified neuropathy Qualified Code(s): E11.40 - Type 2 diabetes mellitus with diabetic neuropathy, unspecified; Z79.4 - care home (current) use of insulin Code(s): E11.9 - Type 2 diabetes mellitus without complications Status: Acute (5) Hyperlipidemia: Qualifiers: Hyperlipidemia type: other hyperlipidemia Qualified Code(s): E78.49 - Other hyperlipidemia Code(s): E78.5 - Hyperlipidemia, unspecified Status: Acute (6) Hypertension: Qualifiers: Hypertension type: unspecified Qualified Code(s): I10 - Essential (primary) hypertension Code(s): I10 - Essential (primary) hypertension Status: Acute (7) Dysphasia: Code(s): R47.02 - Dysphasia Status: Acute (8) Cerebrovascular accident: Qualifiers: CVA mechanism: unspecified Qualified Code(s): I63.9 - Cerebral infarction, unspecified Code(s): I63.9 - Cerebral infarction, unspecified Status: Acute Plan The patient was admitted on 04/22 for evaluation of difficulty speaking .Pt had multiple CVA starting from the year 2017. During current admission, head and neck CTA did not show any large vessel occlusions however did show bilateral internal carotid artery stenosis (60% on the right and 40% on the left) . MRI done 04/23/2024 shows Acute infarct involving left frontal lobe and left insula. Decreased T2*-weighted signal intensity in this volume may be calcification or microhemorrhage. Old infarct in left frontoparietal region. Neurology was consulted and advised to continue on clopidogrel 75 mg daily, aspirin 81 mg daily,atorvastatin 80mg daily and speech therapy. Following PT/OT/ST recs. Echocardiogram ordered and still pending; he has no known history of symptoms to suggest underlying or paroxysmal atrial fibrillation. Blood pressures were reviewed and advised to continue the current medications. Hold metformin as he received IV contrast. Continue sliding scale insulin, Accu-Cheks, and hypoglycemic protocol. Hemoglobin A1c 6.8%. Findings and treatment plan were discussed with the patient and his usgfrmto-bv-ssr who were at bedside with the patient's permission. On the event of discharge patient needs to follow up with Neurologist within 2 months and speech therapy as well. April 24: Continue aspirin 81 mg q.day, Plavix 75 mg q.day, atorvastatin 80 mg q.day. slight improvement in his speech. Continue therapy with physical occupational and speech therapy. Pending [facility] to [facility], care coordinators are ranging. April 25: Discharge to rehab facility pending. Care coordinators arranging. Continue therapy. May 27: Still awaiting discharge per care coordination, working with insurance. Blood sugars reviewed. Consistently elevated. Start glargine 9 units q.h.s.. He is on glargine 15 units subcutaneous HS p.r.n.? Also start carbohydrate consistent diet Surface echocardiogram demonstrating grade 1 diastolic noncompliance O2 left ventricle, no shunt seen. Full code. SCDs. Walking all 3 times per day. Heart healthy diet, carbohydrate consistent diet Subjective Date/time seen: 04/26/24 15:27 Int
--- NOTE | 2024-04-26 15:49 | PM.DS ---
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): Code(s): I63.9 - Cerebral infarction, unspecified; R47.01 - Aphasia Status: Acute (2) Left acute arterial ischemic stroke, MCA (middle cerebral artery): Code(s): I63.512 - Cerebral infarction due to unspecified occlusion or stenosis of left middle cerebral artery Status: Acute (3) Bilateral carotid artery stenosis: Code(s): I65.23 - Occlusion and stenosis of bilateral carotid arteries Status: Acute (4) Hyperlipidemia: Qualifiers: Hyperlipidemia type: other hyperlipidemia Qualified Code(s): E78.49 - Other hyperlipidemia Code(s): E78.5 - Hyperlipidemia, unspecified Status: Acute (5) Hypertension: Qualifiers: Hypertension type: unspecified Qualified Code(s): I10 - Essential (primary) hypertension Code(s): I10 - Essential (primary) hypertension Status: Acute (6) Type 2 diabetes mellitus: Qualifiers: Diabetes mellitus senior living insulin use: with senior living use Diabetes mellitus complication status: with neurologic complications Diabetes mellitus complication detail: with unspecified neuropathy Qualified Code(s): E11.40 - Type 2 diabetes mellitus with diabetic neuropathy, unspecified; Z79.4 - watermaster (current) use of insulin Code(s): E11.9 - Type 2 diabetes mellitus without complications Status: Acute DS: Summary Hospital Course Hospital Course: H&P via Samara Stock PA-C This is a very pleasant 83-year-old male with history of stroke with very mild residual paresthesias in the right hand, hypertension, hyperlipidemia, and type 2 diabetes mellitus who presented to the emergency department via EMS from home for evaluation of difficulties speaking. He is able to provide some history however that is limited due to his speech disturbances and his son and [id number] provide additional information with the patient's permission. The patient lives with his son Robel and his [id number] Edith and they were out of town camping this weekend. Another son has been checking up on him and last saw the patient in his usual state of health at about 08:30 today. Robel and Edith returned home at about 12:30 and the patient was sitting in a recliner watching television. It was at that time they noticed his speech disturbance and a majority of the things that he utters is not coherent. On arrival to triage he apparently had a right-sided facial droop though that is not evident at the time my evaluation. He is able to get a few words out here and there which son states is an improvement. There are no other obvious deficits and the patient denies vertigo, vision changes, difficulty swallowing, focal weakness, and worsening paresthesias in his right hand. He also denies palpitations and sensations of irregular heartbeat. He has not had any recent illnesses or falls. In the ED: He was afebrile on arrival with a blood pressure of 156/71. EKG showed a sinus rhythm with occasional PACs and delayed R/S transition. Labs were significant for WBC count of 9.6, hemoglobin 14.8, platelet 145, sodium 135, chloride 97, glucose 197. CTA of the head and neck showed no evidence of intracerebral arterial occlusion or significant stenosis and% stenosis per NASCET is 60% on the right and 40% on the left. Deep white matter ischemic changes with mild brain atrophy were noted as well as an empty sella turcica with no acute intracranial process. He is outside of the window for thrombolytics and CTA showed no findings that would need to be intervened upon. Dr. Ibarra (on-call neurologist) recommends admission for close monitoring and further workup. The patient was given aspirin 324 mg (he took his morning clopidogrel 75 mg today) and he is being admitted in this setting. ----- MR brain
[2024-04-26 17:10] LABS: Glucose Point of Care 141 mg/dl (65-105)
[2024-04-26 17:33] LABS: SARS-CoV-2 RNA PCR Negative (Negative)
== END 2024-04-26 17:57 | DRG 65 ==
LOC: ANHED 14:48 → ANH2MED 15:04
PROVIDERS: Physician Assistant; Admitting Provider Internal Medicine; Emergency Provider Emergency Medicine; Visit Provider General Practice
DX: I63.512 Cerebral infarction due to unspecified occlusion or stenosis of left middle cerebral artery (principal); I69.351 Hemiplegia and hemiparesis following cerebral infarction affecting right dominant side; R29.705 NIHSS score 5; I65.23 Occlusion and stenosis of bilateral carotid arteries; I10 Essential (primary) hypertension; E78.5 Hyperlipidemia, unspecified; E11.9 Type 2 diabetes mellitus without complications; R47.02 Dysphasia; Z79.02 Long term (current) use of antithrombotics/antiplatelets; R29.810 Facial weakness; Z79.4 Long term (current) use of insulin; Z79.84 Long term (current) use of oral hypoglycemic drugs; Z85.46 Personal history of malignant neoplasm of prostate; Z90.79 Acquired absence of other genital organ(s); Z87.891 Personal history of nicotine dependence; Z11.52 Encounter for screening for COVID-19
CPT/HCPCS: 36415; 70496; 70498; 70553; 80048; 80053; 80061; 81003; 82948; 83036; 83735; 85025; 85610; 85730; 87635; 92507; 92523; 93005; 93306; 93970; 96375; 97110; 97161; 97162; 97165; 97530; 97535; 99285; A9270; A9577; G0378; J1815; J2060; Q9967

== ENCOUNTER 2024-08-14 10:30 | Outpatient (RCR) | payer MEDICARE, SELFPAY ==
--- NOTE | 2024-05-22 16:44 | BUSTOPEVAL1 ---
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 Patient's daughter in law was present during the initial evaluation and reported that prior to the most recent stroke the patient was independent with medication management, persona hygiene needs, as well as daily activities with very limited assistance. Post most recent stroke the patient experiences difficulty communicating wants/needs/medical information resulting in frequent frustration and agitation. The patient often attempts to speak but reports that he get's stuck. He reported that his mind feels jumbled. During the evaluation the patient spoke at the simple word level and spoke with slurred/slow speech. He has bilateral hearing aides and presented with some difficulty hearing throughout the evaluation. Reported Pain Level Pain Score 0: Self Report Assessment ST Clinical Summary Patient was referred for a skilled ST evaluation due to a recent CVA (04-22-24) resulting in Aphasia . Prior to the most recent stroke the patient was independent in communication skills along with ability to complete all medications including daily checks for blood sugar and activities of daily living, independently. The patient was very active outside daily. Since the stroke the patient has been experiencing a significant change in cognitive-communication abilities resulting in frequent frustration with communication breakdowns and inability to remember things he was able to do prior to the stroke. Throughout the session the patient spoke at the simple word/ phrase level with slurred, slow speech. The patient frequently experienced word retrieval difficulties which resulted in ending the topic patient was attempting to discuss and shaking his head. The Mini-Mental State Examination was given with a score of 17/30 indicating a moderate/severe cognitive impairment. A language evaluation was completed with difficulties noted in the following areas including; moderate and complex yes/no questions, 2 and 3 step directions, complex directions, moderate/complex paragraph retention, 8-10 word comprehension skills, simple/mod/complex paragraph comprehension, functional reading skills, automatic speech, sentence repetition, automatic cued speech, open ended cued speech, wh questions, higher level confrontational naming skills, stating object function and divergent naming skills. Recommendation for skilled ST treatment to target these various areas of cognition and language to facilitate improved overall skills for patient to return to prior level of function with least amount of assistance and reduction in frustration. Recommendation for skilled ST to target aphasia and cognitive impairments as a result of CVA 2x/week for 10 visits. Plan of Care Interventions Treatment of Speech,Treatment of Language, Treatment for Cognitive F Treatment Frequency and 2x/week for 10 visits Duration These treatments will address the objective and functional deficits as defined above. The patient will be advanced safely and appropriately in order for the patient to progress towards his/her prior level of function. Additional exercises will be introduced and as well as a comprehensive home exercise program upon discharge, if needed, ?to ensure carryover of functional gains achieved in the clinic. This treatment plan has been reviewed and agreement upon by the patient.
--- NOTE | 2024-06-26 11:57 | STOPPROG ---
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 Patient's daughter in law was present during the initial evaluation and reported that prior to the most recent stroke the patient was independent with medication management, personal hygiene needs, as well as daily activities with very limited assistance. Post most recent stroke the patient experiences difficulty communicating wants/needs/medical information resulting in frequent frustration and agitation. The patient often attempts to speak but reports that he get's stuck. Patient has completed a total of [address] sessions for the treatment of aphasia since the initial evaluation on 05-22-24. The patient's daughter in law reported that she continues to notice improvements in the patient's cognitive skills and overall speech/language skills with less communication breakdowns and frustration. The patient continues to report that he has an increase in difficulty with his vision since the stroke and this impacts his ability to read. Assessment ST Clinical Summary Patient was referred for a skilled ST evaluation due to a recent CVA (04-22-24) resulting in Aphasia . Prior to the most recent stroke the patient was independent in communication skills along with ability to complete all medications including daily checks for blood sugar and activities of daily living, independently. The patient was very active outside daily. Since the stroke the patient has been experiencing a significant change in cognitive-communication abilities resulting in frequent frustration with communication breakdowns and inability to remember things he was able to do prior to the stroke. Throughout the session the patient spoke at the simple word/ phrase level with slurred, slow speech. The patient frequently experienced word retrieval difficulties which resulted in ending the topic patient was attempting to discuss and shaking his head. Patient has completed a total of [address] treatment sessions since the initial evaluation and has recently met a goal for following 2 step directions along with progression in recent memory tasks for picture recall, moderate/complex yes/no questions, sentence imitation skills, reading comprehension skills and convergent naming. The patient continues to struggle to speak fluently at the conversation level with frequent word searching. He reported that he feels his vision has not improved and he continues to struggle to attempt to read things resulting in frustration. Goal added to target visual perceptual skills. Recommendation for skilled ST treatment to target the various areas of cognition and language to facilitate improved overall communication abilities for patient to return to prior level of function with least amount of assistance and reduction in frustration. Recommendation for skilled ST to target aphasia and cognitive impairments as a result of CVA 2x/week for 10 visits. Plan of Care Interventions Treatment of Speech,Treatment of Language, Treatment for Cognitive F ST Services Indicated Yes Treatment Frequency and 2x/week for 10 visits Duration These treatments will address the objective and functional deficits as defined above. The patient will be advanced safely and appropriately in order for the patient to progress towards his/her prior level of function. Additional exercises will be introduced and as well as a comprehensive home exercise program upon discharge, if needed, ?to ensure carryover of functional gains achieved in the clinic. This treatment plan has been reviewed and agreement upon by the patient.
--- NOTE | 2024-07-26 12:32 | STOPPROG ---
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 Patient's daughter in law was present during the initial evaluation and reported that prior to the most recent stroke the patient was independent with medication management, personal hygiene needs, as well as daily activities with very limited assistance. Post most recent stroke the patient experiences difficulty communicating wants/needs/medical information resulting in frequent frustration and agitation. Patient has completed a total of [address] sessions for the treatment of aphasia since the previous progress report written on 06-26-24. The patient's daughter in law reported that she continues to notice improvements in the patient's cognitive skills and overall speech/language skills with less communication breakdowns and frustration. Patient reported that he continues to see progress with his speech but still often gets stuck when attempting to have conversations with others through difficulty with word retrieval. Discussion with patient regarding plan for skilled ST treatment to modify frequency to 1x/week for 10 visits with response in agreement and understanding. Assessment ST Clinical Summary Patient was referred for a skilled ST evaluation due to a recent CVA (04-22-24) resulting in Aphasia . Prior to the most recent stroke the patient was independent in communication skills along with ability to complete all medications including daily checks for blood sugar and activities of daily living, independently. The patient was very active outside daily. Since the stroke the patient has been experiencing a significant change in cognitive-communication abilities resulting in frequent frustration with communication breakdowns and inability to remember things he was able to do prior to the stroke. Throughout the session the patient spoke at the simple word/ phrase level with slurred, slow speech. The patient frequently experienced word retrieval difficulties which resulted in ending the topic patient was attempting to discuss and shaking his head. Patient has completed a total of [address] treatment sessions since the initial evaluation and has met goals for following 2 step directions , orientation comprehension, and moderate/complex yes/no questions. The patient continues to show progression in recent memory tasks (through paragraph recall, pictures and paired words through association), sentence imitation skills, reading comprehension skills and verbal expression skills. The patient continues to struggle to speak fluently at the conversation level with frequent word searching. He reported that he feels his vision has not improved and he continues to struggle to attempt to read things resulting in frustration. MMSE was administered with score of 17/30 indicating a moderate/severe cognitive impairment on 05-22-24 during the initial evaluation. Testing was administered during the session this date with the score of 23/30 indicating mild cognitive impairment at this time. Recommendation for skilled ST treatment to target the various areas of cognition and language to facilitate improved overall communication abilities for patient to return to prior level of function with least amount of assistance and reduction in frustration. Recommendation for skilled ST to target aphasia and cognitive impairments as a result of CVA 1x/week for 10 visits. Plan of Care Interventions Treatment of Speech,Treatment of Language, Treatment for Cognitive F ST Services Indicated Yes Treatment Frequency and 1x/week for 10 visits Duration These treatments will address the objective and functional deficits as defined above. The patient will be advanced safely and appropriately in order for the patient to progress towards his/her prior level of function. Additional exercises will be introduced and as well as a comprehensive home exercise program upon discharge, if needed, ?to ensure carryover of functional gains achieved in the clinic. This treatment plan has been reviewed and agreement upon by the patient.
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
--- NOTE | 2024-08-21 11:17 | PCSTNOTE ---
This treatment is being continued on visit number [id number]. Please see documentation on both accounts to view progress. Completed interventions, outcomes, and problems have been marked as Inactive to facilitate the copying of the Care plan routine for recurring accounts.
== END 2024-08-20 23:59 | disposition home or self-care (01) ==
LOC: CHSST 10:30
PROVIDERS: Visit Provider Family Medicine
DX: I69.320 Aphasia following cerebral infarction (principal); I69.319 Unspecified symptoms and signs involving cognitive functions following cerebral infarction
CPT/HCPCS: 92507; 92523; 96125

== ENCOUNTER 2024-09-04 10:30 | Outpatient (RCR) | payer MEDICARE, SELFPAY ==
--- NOTE | 2024-08-21 11:18 | PCSTNOTE ---
The treatment documented on this account is a continuation of the treatment documented on visit number [id number]. Please see documentation on both accounts to view progress. The Plan of Care has been transitioned and updated within the new A#. I have addressed and agree with the discipline specific Problems, Interventions, and Goals for the current certification period. Completed interventions, outcomes, and problems have been marked as Inactive to facilitate the copying of the Care plan routine for recurring accounts.
--- NOTE | 2024-08-28 11:31 | PCSTNOTE ---
Patient called & cancelled scheduled appointment this date due to transportation issues.
--- NOTE | 2024-09-21 15:20 | PCSTNOTE ---
Patient's daughter in law called & cancelled scheduled appointment this date due to transportation difficulties. She also cancelled the following appointment as well.
--- NOTE | 2024-10-23 13:59 | STOPDC ---
Assessment and note entered by Libia Calle SACK MAKER Evaluation Information Assessment Status Discharge - Pt Not Present Diagnosis Aphasia ICD-10 Condition Codes (ST) Cognitive Deficits following cerebral infarction I69.31,Aphasia following cerebral infarction: I69. 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 Patient's daughter in law was present during the initial evaluation and reported that prior to the most recent stroke the patient was independent with medication management, personal hygiene needs, as well as daily activities with very limited assistance. Post most recent stroke the patient experiences difficulty communicating wants/needs/medical information resulting in frequent frustration and agitation. Patient has completed a total of [address] sessions for the treatment of aphasia since the initial evaluation completed on 05-22-24. The patient's daughter in law reported that she continues to notice improvements in the patient's cognitive skills and overall speech/language skills with less communication breakdowns and frustration. Patient reported that he continues to get stuck with his words but does not experience this as often as he did. He is happy with the progress he has made and is ready for discharge at this time. Spoke with daughter in law and she is also happy with progress and feels that the patient is ready for discharge due to plateau in skills and difficulty with transportation to appointments. Assessment ST Clinical Summary Patient was referred for a skilled ST evaluation due to a recent CVA (04-22-24) resulting in Aphasia . Prior to the most recent stroke the patient was independent in communication skills along with ability to complete all medications including daily checks for blood sugar and activities of daily living, independently. The patient was very active outside daily. Initially the patient had been experiencing a significant change in cognitive-communication abilities resulting in frequent frustration with communication breakdowns and inability to remember things he was able to do prior to the stroke. Patient has completed a total of [address] treatment sessions since the initial evaluation and has met goals for following 2 step directions, orientation comprehension, and moderate/complex yes/no questions. He continued to show progression in skills for reading comprehension and verbal expression but recently has shown a plateau in skills. He reported that he feels his vision has not improved and he continues to struggle to attempt to read things resulting in frustration. MMSE was administered with score of 17/30 indicating a moderate/severe cognitive impairment on 05-22-24 during the initial evaluation. Testing was administered during the session on 07-26-24 with the score of 23/30 indicating mild cognitive impairment at this time. Spoke with the patient and daughter in law regarding progress and current plateau in skills with response in understanding. Patient and daughter are both very happy with progress made in treatment and feel that the patient is ready for discharge at this time. Education regarding tasks patient can continue to complete at home to target cognitive skills, auditory comprehension and verbal expression skills with response in understanding. Plan of Care Services Indicated No
== END 2024-09-11 19:00 | disposition home or self-care (01) ==
LOC: CHSST 10:30
PROVIDERS: Visit Provider Family Medicine
DX: I69.320 Aphasia following cerebral infarction (principal); I69.319 Unspecified symptoms and signs involving cognitive functions following cerebral infarction
CPT/HCPCS: 92507

== ENCOUNTER 2025-07-22 04:48 | Inpatient (IN) | payer MEDICARE, SELFPAY ==
[2025-07-22] VITALS (15 sets, daily range): BP systolic 109–157; BP diastolic 50–76; PULSE 68–85; RESP 16–20; TEMP 36.6–37.1; O2SAT 93–98; BMI 22.5
--- NOTE | 2025-07-22 | ECHO_ITS ---
Patient Info Name: Jose Vaz Age: 85 years : 1940 Gender: Male Ht: 71 in Wt: 161 lbs BSA: 1.91 m2 HR: 68 bpm BP: 145 / 51 mmHg Heart Rhythm: Sinus Rhythm Technical Quality: Good Exam Date: 07/22/2025 4:12 PM Patient Status: I Admit Date: 07/22/2025 Exam Type: CA echo doppler w bubble study Complete two-dimensional, color flow and Doppler transthoracic echocardiogram is performed with agitated saline. Staff Referring Physician: Jose Manuel Cobos Front End Developer Javascript Html Css: Saurav Jerry III Attending Provider: Reji Shannon MD Contrast/Agitated Saline Contrast/Ag. Saline: Agitated Saline Amount: 12.00 ml Administered By: Hansa Steen Existing IV Access: Yes IV Access Condition: patent with no signs of infiltration Summary 1. normal left ventricular size with normal systolic function and grade 1 diastolic noncompliance. 2. mild left atrial enlargement. 3. trivial MR. 4. agitated saline contrast was negative for evidence of shunt. 5. compared with echocardiogram with saline contrast in March of 2024, the findings are unchanged. Left Ventricle Left ventricular chamber dimension is normal. Left ventricular systolic function is normal, estimated at 65-70. The left ventricular diastolic function is grade I diastolic dysfunction. Right Ventricle Right ventricular chamber dimension is normal. Left Atria Left atrial chamber dimension is mildly enlarged. Right Atria Right atrial chamber dimension is normal. Atrial Septum Intact interatrial septum visualized by agitated saline imaging. Aortic Valve The aortic valve is trileaflet. There is mild aortic valve stenosis with a peak velocity of 156 cm/s, mean gradient of 5 mmHg, and aortic valve area of 3.3 cm2. Pulmonic Valve The pulmonic valve is not well visualized. Mitral Valve The mitral valve has normal leaflets. There is trace mitral valve regurgitation. The mitral valve annulus is mildly calcified. Tricuspid Valve The tricuspid valve leaflets are normal. Pericardium/Pleural The pericardium appears normal. Aorta The aortic root size at the sinus of Valsalva is normal. Left Ventricular Outflow Tract Name Value Normal LVOT 2D LVOT Diameter 2.2 cm LVOT Doppler LVOT Peak Velocity 98 cm/s LVOT Peak Gradient 4 mmHg LVOT Mean Gradient 2 mmHg LVOT VTI 28 cm LVOT VTI/AV VTI Ratio 0.9 LVOT Stroke Volume 106 ml LVOT CO 8.6 l/min LVOT CI 4.5 l/min/m2 Pulmonic Valve Name Value Normal PV Doppler PV Peak Velocity 112 cm/s PV Peak Gradient 5 mmHg PV Mean Gradient 3 mmHg Mitral Valve Name Value Normal MV Doppler MV Peak Gradient 5 mmHg MV Mean Gradient 2 mmHg MV Area (Cont Eq VTI) 3.2 cm2 MV Diastolic Function MV E Peak Velocity 105 cm/s MV A Peak Velocity 118 cm/s MV E/A 0.9 MV Decel Time (PW) 306 ms MV Annular TDI MV E/e' (Septal) 14.4 MV E/e' (Lateral) 13.6 MV E/e' (Average) 14.0 Tricuspid Valve Name Value Normal TV Annular TDI TV Lateral Yelena s' Velocity 20.3 cm/s >=9.5 Aortic Valve Name Value Normal AV Doppler AV Peak Velocity 156 cm/s AV Peak Gradient 10 mmHg AV Mean Gradient 5 mmHg AV VTI 32 cm AV Area (Cont Eq VTI) 3.3 cm2 >=3.0 AV Area (Cont Eq Chris) 2.3 cm2 AV DI (Chris) 0.63 AV Regurgitation 2D LVOT Area 3.7 cm2 Ventricles Name Value Normal LV Dimensions 2D/MM IVS Diastolic Thickness (2D) 0.8 cm 0.6-1.0 LVID Diastole (2D) 4.3 cm 4.2-5.8 LVIW Diastolic Thickness (2D) 0.9 cm 0.6-1.0 LVID Systole (2D) 2.9 cm 2.5-4.0 LVOT Diameter 2.2 cm LV Mass (2D Cubed) 113.97 g 88.00-224.00 LV Mass Index (2D Cubed) 60 g/m2 49-115 Relative Wall Thickness (2D) 0.41 <=0.42 LV Fractional Shortening/Ejection Fraction 2D/MM LV Fractional Shortening (2D) 32 % 25-43 LV EF (2D Teichholz) 61 % LV Diastolic Volume (4C MOD) 85 ml LV EF (4C MOD) 68 % LV Diastolic Volume (2C MOD) 90 ml LV EF (2C MOD) 66 % LV Diastolic Volume (BP MOD) 87 ml 62-150 LV Diastolic Volume Index (BP MOD) 46 ml/m2 34-74 LV Systolic Volume (BP MOD) 29 ml 21-61 LV Systolic Volume Index (BP MOD) 15 ml/m2 11-31 LV EF (BP MOD) 66 % 52-72 LV Diastolic Length (4C) 7.9 cm LV Systolic Length (4C) 6.0 cm LV Stroke Volume (4C MOD) 58 ml Atria Name Value Normal LA Dimensions LA Volume (4C A-L) 42 ml LA Volume (BP A-L) 65 ml RA Dimensions RA Systolic Major [place] Length (4C) 6.3 cm 2.1-2.7 RA Area (4C) 17.6 cm2 <=18.0 Report Signatures
--- NOTE | ~2025-07-22 | CT_ITS ---
CTA NECK, CTA HEAD Clinical History: ams, poss stroke Comparison: Noncontrast CT head today TECHNIQUE: Helical images thoracic inlet to vertex IV contrast information not listed in PACS Coronal, sagittal reformats. Multi planar MIPS CT images acquired with automatic exposure control for dose reduction DLP: 1107 mGy-cm Findings: NASCET Criteria utilized CTA NECK Aortic arch: No aneurysm or dissection. Atherosclerotic disease. Great vessel origins: No stenosis. CCAs: No stenosis. Cervical ICAs: Severely calcified plaques but less than 50% stenosis bilaterally. Vertebral Arteries: Patent. Left side dominant. Right V4 segment diminutive after PICA. Lung Apices: Clear. Thyroid: Unremarkable. Nodes: No enlarged nodes. Bones: No acute bony abnormality. 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 Axial series 3 image 82. Intracranial ICAs: Patent, unremarkable. ACAs and their distal branches: Patent, unremarkable. A-Comm: Identified. Patent, unremarkable. MCAs and their distal branches: Patent, unremarkable. Basilar artery: Patent, unremarkable. guitar repairer and their distal branches: Patent. Bilateral P1 stenosis. P-Comms: Right side identified. IMPRESSION: CTA NECK: 1. Patent cervical arteries without acute abnormality. CTA HEAD: 1. No large vessel arterial occlusive disease or acute abnormality. 2. 3 mm aneurysm left carotid terminus. Recommend endovascular consultation and surveillance. Reviewed, dictated and finalized at location R. IMPRESSION: CTA NECK: 1. Patent cervical arteries without acute abnormality. CTA HEAD: 1. No large vessel arterial occlusive disease or acute abnormality. 2. 3 mm aneurysm left carotid terminus. Recommend endovascular consultation an d surveillance.
--- NOTE | ~2025-07-22 | XR_ITS ---
Examination: XR chest 1V Clinical History: AMS Comparison: None Technique: Portable AP Findings: Heart size normal. Minimal right basilar atelectasis. Lungs otherwise clear. No acute bony abnormality. IMPRESSION: 1. No acute cardiopulmonary findings given portable technique. Reviewed, dictated and finalized at location R.
--- NOTE | ~2025-07-22 | MR_ITS ---
EXAMINATION: MR brain/brain stem wo con DATE: 07/22/2025 12:24 INDICATION: Ataxia. Unresponsiveness. TECHNIQUE: Magnetic resonance imaging (MRI) of the brain and brainstem was performed without intravenous contrast. COMPARISON: Brain MRI 04/23/2024, head CT 07/22/2025 FINDINGS: There is an old infarct involving left frontoparietal region and left insula with old blood products. There is a small acute infarct in the gokul on the left. There are scattered areas of nonspecific increased T2-weighted signal intensity in the cerebral white matter, which is within normal limits for the patient's age. There is no abnormal mass lesion. The ventricles are normal in size. There is mild mucosal thickening in the paranasal sinuses. The orbits are normal. The mastoid air cells are normal. IMPRESSION: 1. Small acute infarct in the gokul on the left. 2. Old infarct involving the left frontoparietal region and left insula. Reviewed, dictated and finalized at location E.
--- NOTE | ~2025-07-22 | CT_ITS ---
CT HEAD NON-CONTRAST CT C-SPINE Clinical History: ams, possible fall, on thinners Comparison: None Technique: Unenhanced axial images skull base to vertex. Coronal, sagittal reformats. Axial images thoracic inlet to skull base. Sagittal and coronal reformats. CT images acquired with automatic exposure control for dose reduction DLP: 681 mGy-cm Findings: Head: Left frontal encephalomalacia. Sulci, ventricles: Unremarkable. No intracerebral hemorrhage. No evidence acute territorial infarct. No mass effect, midline shift, intra-/extra-axial fluid collection. Bony calvarium intact. Visualized paranasal sinuses: Clear. Mastoid air cells: Clear. C-spine: No acute fracture. Grade 1 anterolisthesis C4 on 5, C7 on T1 Vertebral bodies normal height and alignment. Moderate degenerative changes. Disc spaces maintained. Prevertebral soft tissues within normal limits. Visualized lung apices: Clear. Visualized thyroid: Unremarkable. No enlarged cervical nodes. IMPRESSION: HEAD: 1. No acute intracranial findings. C-SPINE: 1. No acute fracture. Reviewed, dictated and finalized at location R. IMPRESSION: HEAD: 1. No acute intracranial findings. C-SPINE: 1. No acute fracture.
--- NOTE | 2025-07-22 04:53 | ECG_ITS ---
Test Date: 2025-07-22 04:55:32 Measurements Intervals [place] Rate: 80 P: 28 UT: 179 QRS: 36 QRSD: 90 T: 33 QT: 375 QTc: 434 Interpretive Statements SINUS RHYTHM BASELINE ARTIFACT- I, II, III, AVR, AVL, AVF, V1-V6 NORMAL ECG Compared to ECG 04/22/2024 13:21:00 Atrial premature complex(es) no longer present Electronically Signed On 07-22-2025 06:15:08 CDT by Rafa Herr D.O.
--- NOTE | 2025-07-22 04:56 | ED.AMS ---
HPI - Altered Mental Status General Chief Complaint: Altered Mental Status Stated Complaint: ams Time Seen by Provider: 07/22/25 04:49 Source: EMS Mode of arrival: EMS Limitations: altered mental status History of Present Illness HPI narrative: This is an 85-year-old male with history of stroke, diabetes, hyperlipidemia, hypertension who presents to the ED for altered mental status. Per EMS, patient was reportedly found down by family in his kitchen in his own vomitus. Unclear how long he had been down, last known well was at least 4 hours prior. He has been altered for family. Per EMS, he has not been able to answer questions appropriately at this time. History he is otherwise limited due to the patient's altered mental status. Related Data Home Medications ?Medication ?Instructions ?Recorded ?Confirmed ?Last Taken ?Type amlodipine 10 mg tablet 10 mg PO DAILY 04/22/24 07/22/25 07/21/25 History atorvastatin 80 mg tablet 80 mg PO DAILY 04/22/24 07/22/25 07/21/25 History blood sugar diagnostic (OneTouch 04/22/24 04/22/24 Unknown History Ultra Test strips) clopidogrel 75 mg tablet 75 mg PO DAILY 04/22/24 07/22/25 07/21/25 History gabapentin 100 mg capsule 100 mg PO DAILY 04/22/24 07/22/25 07/21/25 History insulin degludec 200 unit/mL (3 15 unit subcut HS PRN Hyperglycemia 04/22/24 07/22/25 Unknown History mL) subcutaneous pen (Tresiba FlexTouch U-200 insulin) metformin 500 mg tablet,extended 500 mg PO DAILY 04/22/24 07/22/25 07/21/25 History release 24 hr amoxicillin 875 mg-potassium tablet 07/22/25 07/21/25 History clavulanate 125 mg tablet hydrocodone 5 mg-acetaminophen 325 tablet 07/22/25 Unknown History mg tablet Allergies Allergy/AdvReac Type Severity Reaction Status Date / Time gemfibrozil Allergy Difficulty Verified 07/22/25 05:43 Breathing lisinopril Allergy Anaphylaxis Verified 07/22/25 05:43 Review of Systems Review of Systems: ROS unobtainable: Yes unobtainable due to mental status PMFSH Past Medical History Medical History 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 Code status: Full code. Years smoked: 20 Smoking status: Former smoker Tobacco type: cigarettes Second hand tobacco smoke exposure: No Additional smoking assessment comments: Remote smoker. Alcohol intake: current Drinks per week: 14 Alcohol use details: Drinks a 6 pack of beer most nights of the week. Substance use: never Do You Feel Safe in your Home?: Yes Lack of Transportation: No Lack of Food: Never True Current Housing: I Have Housing Concerned About Future Housing: No Difficulty Paying Gas/Electric Bills: No Difficulty Paying for Meds: No Currently Unemployed: No Education: High School Diploma/GED Difficulty w/ Childcare or Family Care: No Additional living arrangements comments: Lives with son Robel and [id number] Edith in [place]. 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 Exam Narrative: APPEARANCE: No acute distress, nontoxic, resting in bed EYES: EOMI,PERRL HEENT: Normocephalic, atraumatic, OMM RESPIRATORY: No respiratory distress Clear to auscultation bilaterally with no rhonchi wheezing or rales. CARDIOVASCULAR: Regular rate and rhythm without murmurs rubs or gallops. ABDOMINAL: Soft, nontender, nondistended, no rebound or guarding MUSCULOSKELETAl: Moves all extremities. No clubbing, cyanosis or edema. NEURO: Awake and alert and oriented to self only. Following commands, speech normal, no focal deficits SKIN:: Warm, dry. No rashes lesions or abrasions PSYCHIATRIC: Normal affect/mood, Course Vital Signs Vital signs: Vital Signs Temperature 98.8 F 07/22/25 04:54 Pulse Rate 81 07/22/25 04:54 Respiratory Rate 16 07/22/25 04:54 Blood Pressure 135/74 07/22/25 04:54 Pulse Oximetry 96 07/22/25 04:54 Oxygen Delivery Room Air 07/22/25 04:54 Temperature 98.8 F 07/22/25 04:54 Pulse Rate 73 07/22/25 07:03 Respiratory Rate 17 07/22/25 07:03 Blood Pressure 109/50 L 07/22/25 07:03 Pulse Oximetry 98 07/22/25 07:03 Oxygen Delivery Room Air 07/22/25 04:54 MDM - Altered Mental Status MDM Narrative Medical decision making narrative: 85-year-old male presenting for altered mental status. On initial evaluation patient was in no acute distress afebrile, hemodynamic stable. Differentials include but are not limited to: CVA, TIA, ICH, meningitis, UTI, cancer, drug intoxication, hypoglycemia, electrolyte abnormality Notable exam findings: A/O x1. No focal deficits. Heart and lungs clear. Abdomen soft and nontender. Notable lab findings: Mild leukocytosis at 11.4. Mild anemia of 13. UA without evidence of UTI. Notable imaging findings: CT head and C-spine without acute abnormalities. CTA head and neck showed some moderate stenoses of the bilateral carotid arteries but no acute blockages. Chest x-ray showed no acute process. There are no other obvious sources of this altered mental status at this time. He will require further neurologic evaluation. I discussed the case with Dr. Cobos, neurology, recommends aspirin and his regular Plavix. Will see the patient as a consult. Case was discussed with hospitalist who will admit the patient. Medical Records Attestation: I reviewed the patient's medical records. Lab Data Attestation: I reviewed the patient's lab results. 07/22/25 05:01 07/22/25 05:01 Labs: Lab Results 07/22/25 07/22/25 Range/Units 05:01 05:58 WBC 11.4 H (4.5-10.0) K/mm3 RBC 4.08 L (4.6-6.20) M/mm3 Hgb 13.0 L (14.0-18.0) g/dL Hct 38.5 L (42.0-52.0) % MCV 94.4 (80-100) fl MCH 31.9 (26-34) pg MCHC 33.8 (32-36) g/dl RDW 13.2 (11.5-14.5) % Plt Count 109 L (150-375) k/mm3 MPV 11.0 H (7.4-10.4) fl Immature Gran % (Auto) 1.0 H (0-0.5) % Neut % (Auto) 83.8 H (45.5-73.1) % Lymph % (Auto) 7.3 L (18.3-44.2) % Fisher % (Auto) 7.0 (2.6-8.5) % Eos % (Auto) 0.6 (0-4.4) % Baso % (Auto) 0.3 (0.2-1.2) % Lymph # (Auto) 0.83 L (0.9-3.2) K/mm3 Fisher # (Auto) 0.8 H (0.1-0.6) K/mm3 Eos # (Auto) 0.1 (0-0.3) K/mm3 Baso # (Auto) 0.0 (0.0-0.1) K/mm3 Abs Immat Gran (auto) 0.11 H (0.00-0.031) K/mm3 Absolute Neuts (auto) 9.6 H (1.3-6.7) K/mm3 Absolute Nucleated RBC 0.000 (0.0-0.012) K/mm3 Nucleated RBC % 0.0 (0.0-0.2) % % Immature Plt Fraction 6.0 (0.9-11.2) % PT 14.0 (11.1-14.7) Seconds INR 1.1 Sodium 135 L (137-145) mmol/L Potassium 4.4 (3.4-5.0) mmol/L Chloride 98 (98-107) mmol/L Carbon Dioxide 27 (22-30) mmol/L Anion Gap 10 (4-12) mmol/L BUN 22 H D (9-20) mg/dL Creatinine 0.99 (0.7-1.3) mg/dL Estim Creat Clear Calc 47 ml/min Estimated GFR > 60 (59 - ) Glucose 229 H (65-110) mg/dL Lactic Acid 1.3 (0.7-2.0) mmol/L Calcium 9.1 (8.4-10.2) mg/dL Total Bilirubin 1.1 (0.2-1.3) mg/dL AST 25 (17-59) U/L ALT 24 (6-50) U/L Alkaline Phosphatase 69 (38-126) U/L Total Creatine Kinase 61 (55-170) U/L Troponin I 0.014 (0.000-0.034) ng/mL Total Protein 6.4 (6.3-8.2) g/dL Albumin 4.1 (3.5-5.1) g/dL TSH 1.480 (0.465-4.680) uIU/mL Urine Color Yellow (Yellow) Urine Appearance Clear (Clear) Urine pH 5.5 (5.0-9.0) Ur Specific [place] 1.021 (1.001-1.035) Urine Protein Trace (Negative) mg/dL Urine Glucose (UA) 1+ H (Negative) mg/dL Urine Ketones 3+ H (Negative) mg/dL Ur Blood (Man) Negative (Negative) Urine Nitrate Negative (Negative) Urine Bilirubin Negative (Negative) Urine Urobilinogen 1.0 (<2.0) mg/dL Add Ur Microanalysis Reviewed Leukocyte Esterase Rfl Negative (Negative) JOLANTA/UL Urine RBC 0-2 (0-2) /hpf Urine WBC 0-5 (0-3) /hpf Ur Squamous Epith Cells None seen (Few) /hpf Urine Bacteria None seen /hpf Urine Casts 0-2 Salicylates < 1.0 L (2-20) mg/dL Urine Opiates Screen Pending Urine Methadone Screen Pending Acetaminophen < 10 L (10-30) ug/mL Ur Barbiturates Screen Pending Ur Phencyclidine Scrn Pending Ur Amphetamine Screen Pending U Benzodiazepines Scrn Pending Urine Cocaine Screen Pending U Cannabinoids Screen Pending Ethyl Alcohol < 10 (<10) mg/dL Imaging Data Attestation: I personally reviewed and interpreted this imaging study as follows: My impression: CT head: No acute bleeds CT C-spine: Degenerative changes without fractures Chest x-ray: Normal cardiac silhouette, no consolidations, no pleural effusions, no pulmonary vascular congestion Radiologist's impression: CT head: No acute intracranial findings. No intracranial hemorrhage CT C-spine: Diffuse degenerative change. No acute findings. No evidence of fracture CTA head/neck: 75% stenosis of the left carotid bulb and proximal aspect of the proximal left internal carotid artery. Roughly 50% narrowing of the right carotid bulb. Roughly 50% narrowing of the distal bilateral internal carotid arteries. No acute findings. No evidence of large vessel occlusion or injury. ECG Data EKG #1: Attestation: I personally reviewed and interpreted this ECG as follows: ECG completion date: 07/22/25 ECG completion time: 04:55 Prior ECG tracings: not available for review Interpretation: Normal sinus rhythm, normal axis, normal intervals, no acute ST or T-wave changes Discharge Plan Discharge Clinical Impression: Altered mental status Patient Disposition: Still a Patient Condition: Stable Patient Language: Luxembourgish Prescriptions: No Action hydrocodone-acetaminophen 5-325 mg tablet amoxicillin-pot clavulanate 875-125 mg tablet atorvastatin 80 mg tablet 80 mg PO DAILY clopidogrel 75 mg tablet 75 mg PO DAILY (DME) OneTouch Ultra Test Strip MISCELLANEOUS amlodipine 10 mg tablet 10 mg PO DAILY gabapentin 100 mg capsule 100 mg PO DAILY metformin 500 mg tablet extended release 24 hr 500 mg PO DAILY insulin degludec [Tresiba FlexTouch U-200] 200 unit/mL (3 mL) insulin pen 15 unit subcut HS PRN (Reason: Hyperglycemia) aspirin 81 mg capsule 81 mg PO DAILY Qty: 30 0RF Follow-up/Referrals: UNKNOWN,DOCTOR [Non-Staff]
[2025-07-22 05:18] LABS: Hematocrit 38.5 % (42.0-52.0); Hemoglobin 13.0 g/dL (14.0-18.0); Immature Granulocyte Percent A 1.0 % (0-0.5); Immature Platelet Fraction Pct 6.0 % (0.9-11.2); Lymphocytes Absolute Auto 0.83 K/mm3 (0.9-3.2); Mean Corpuscular HGB Conc 33.8 g/dl (32-36); Mean Corpuscular Hemoglobin 31.9 pg (26-34); Mean Corpuscular Volume 94.4 fl (80-100); Nucleated Red Blood Cells Absolute Auto 0.000 K/mm3 (0.0-0.012); Nucleated Red Blood Cells Perc 0.0 % (0.0-0.2); Platelet Count Result 109 k/mm3 (150-375); Red Blood Count 4.08 M/mm3 (4.6-6.20); White Blood Count 11.4 K/mm3 (4.5-10.0)
[2025-07-22 05:28] LABS: INR 1.1; Prothrombin Time 14.0 Seconds (11.1-14.7)
[2025-07-22 05:34] LABS: Acetaminophen < 10 ug/mL (10-30); Salicylate < 1.0 mg/dL (2-20)
[2025-07-22 05:35] LABS: Alanine Aminotransferase 24 U/L (6-50); Albumin Level 4.1 g/dL (3.5-5.1); Alkaline Phosphatase 69 U/L (38-126); Anion Gap 10 mmol/L (4-12); Aspartate Amino Transferase 25 U/L (17-59); Bilirubin,Total 1.1 mg/dL (0.2-1.3); Blood Urea Nitrogen 22 mg/dL (9-20); Calcium 9.1 mg/dL (8.4-10.2); Carbon Dioxide 27 mmol/L (22-30); Chloride 98 mmol/L (98-107); Creatine Kinase 61 U/L (55-170); Estimated CRCL calculation 47 ml/min; Estimated Glomerular Filt Rate > 60; Glucose 229 mg/dL (65-110); Potassium 4.4 mmol/L (3.4-5.0); Sodium 135 mmol/L (137-145); Total Protein 6.4 g/dL (6.3-8.2)
[2025-07-22 05:47] LABS: Troponin I 0.014 ng/mL (0.000-0.034)
[2025-07-22 06:06] LABS: Thyroid Stimulating Hormone 1.480 uIU/mL (0.465-4.680)
[2025-07-22 06:22] LABS: Need Manual Microscopic Reviewed; Non Pathogenic Casts 0-2
[2025-07-22 06:26] LABS: Add Urine Microscopic? YES; Appearance Urine Clear (Clear); Glucose Urine UA 1+ mg/dL (Negative); Leukocyte Esterase Ur Negative LEU/UL (Negative); Nitrate Urine Negative (Negative); Specific Grav Ur 1.021 (1.001-1.035)
[2025-07-22] MEDS: CLOPIDOGREL BISULFATE 75 MG TABLET PO (07:51)
[2025-07-22] MEDS: ASPIRIN 81 MG ENTERIC TABLET PO (07:51)
[2025-07-22 08:27] LABS: Cannabinoid Screen Urine Negative (Negative)
--- NOTE | 2025-07-22 08:53 | ADMGEN ---
This patient, Jose Vaz, was admitted to Medical Room 246-. Patient/family oriented to hospital policies and general routines including ID bracelet, bed and alarms, visiting hours, pain management, procedures, bathroom and other care routines, personal items, smoking policy, room service/diet, and visiting hours. Information on how to activate the Rapid Response Team has been discussed. Patient/Family are encouraged to report perceived risks to care and to ask questions if they do not understand what they are told or what they should do.
--- NOTE | 2025-07-22 10:43 | WPDNEURCNPN ---
Assessment and Plan Assessment and plan (1) Altered mental status: Code(s): R41.82 - Altered mental status, unspecified Status: Acute Assessment and Plan: Patient was found on the floor and that may raise possibility accidental fall, seizure disorder, recurrence of the stroke or transient ischemic attack or extension of the previous stroke. Metabolic conditions may also contribute to that. He has had a procedure done on the several teeth a week ago. I would suggest an EEG and MRI of the brain and check his B12 folic acid level. Patient may have underlying dementia due to multiple cerebral infarction or degeneration of both. I will suggest to start him on Namenda XR 7 mg daily as per my discussion with the family members. we should also check his B12 folic acid level. I shall be glad to see him my office for follow-up regarding this particular issue. I have alerted the family members that sometimes this seizures can also occur where the patient may get confused and then get better and if the observe anything that appeared to be suspicious to reported to . They did describe that this morning he was stiffening his hands but today with that it was difficult to tell if he has any acute alteration in the mental status returning back to baseline again. Patient is being monitored from cardiac point of view. His vital signs and EKG have been within normal range according to the staff members. I would suggest to continue him on atorvastatin and Plavix and aspirin. He did have an echocardiogram done on 04/23/2024 which did not show any significant abnormalities. On this admission he appears to have sinus with. 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 Whether he has an extension of the stroke was also a consideration. The patient should be observed for any further neurologic deficit. (3) Dementia: Code(s): F03.90 - Unspecified dementia, unspecified severity, without behavioral disturbance, psychotic disturbance, mood disturbance, and anxiety Status: Acute Assessment and Plan: Besides multi-infarct dementia at times a degenerative dementia Alzheimer's type can coexist. A beta amyloid 42/40 ratio can be useful however based upon the discussion the family members out suggest to start him on Namenda XR 7 mg a day. This can be increased at weekly intervals to XR 28 mg a day from 4th week. After that he may continue with it if he is able to tolerate it. (4) Hypertension: Qualifiers: Hypertension type: unspecified Qualified Code(s): I10 - Essential (primary) hypertension Code(s): I10 - Essential (primary) hypertension Status: Acute (5) Type 2 diabetes mellitus: Qualifiers: Diabetes mellitus half-way insulin use: with adjunct faculty for medical terminology use Diabetes mellitus complication status: with neurologic complications Diabetes mellitus complication detail: with unspecified neuropathy Qualified Code(s): E11.40 - Type 2 diabetes mellitus with diabetic neuropathy, unspecified; Z79.4 - senior care (current) use of insulin Code(s): E11.9 - Type 2 diabetes mellitus without complications Status: Acute (6) Hyperlipidemia: Qualifiers: Hyperlipidemia type: other hyperlipidemia Qualified Code(s): E78.49 - Other hyperlipidemia Code(s): E78.5 - Hyperlipidemia, unspecified Status: Acute Plan Management of underlying metabolic problems and concurrent medical conditions. I reviewed the CT angiogram of the head and neck and CT scan of the brain agree that there is no acute finding noted and also there is no critical narrowing of the vessels or extracranial carotid arteries. Consult date: 07/22/25 HPI: Jose Vaz is a 85 year old male with history of CVA with aphasia in March of 2024 presented having been found on the floor by the family members. He lives with his son and [id number]. Both of them were present the time of this evaluation along with under the sun. Since the stroke in March 2024 he has been through speech therapy but his speech did not return back to normal. He is also hard of hearing and he did not bring the hearing aid here. Despite the hearing aid he still seems to be confused to the family members several times outside just being aphasic to some extent. He is able to walk around. He did not have any incontinence of urine or blood around the mouth. While being brought to the hospital he had 2 spells where he has some stiffening of the limbs. There is a fluctuation in his mental status time to time. About a week ago he had a dental procedure done on several teeth. No recent febrile illness or trauma reported. He has not had any passing out spell or seizure like spells. He did not have any paralysis on either side of the body. He did identify son and told me his 1st name but he could not tell me his age however his son says that today even on a good day he could not tell his age. The patient was taking Plavix and 80 mg of atorvastatin after the stroke last year. Previously is LDL around 46. There is also history of diabetes mellitus, hypertension and carcinoma of prostate. He used to drink alcohol up to 6 about his a day but he no longer drinks. In the emergency room he had a CT scan of brain and CT angiogram of the head and neck which did not show any significant abnormality. There is no large vessel occlusion. Radiologist reported a 3 mm size and at the left carotid terminus. No significant abnormalities were noted in the CT angiogram of the head or neck outside this finding. He did have a CT angiogram of the head and neck done in March of 2024 when he was described as having 60% narrowing of the right internal carotid artery and 40% in the left ICA. There is no history of myocardial infarction or major head trauma. Prior history of seizures. Outside the speech problem the family does feel that he has progressive decline in the memory. Review of Systems Review of Systems: Patient has been complaining of soreness in his both legs particular the right knee which is being attributed to having the fall this morning. He was found on the floor by the family members around 330 and he was in the hospital within an hour. 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 Code status: Full code. Years smoked: 20 Smoking status: Former smoker Tobacco type: cigarettes Second hand tobacco smoke exposure: No Additional smoking assessment comments: Remote smoker. Alcohol intake: current Drinks per week: 7 Alcohol use details: Drinks a 6 pack of beer most nights of the week. Substance use: never Substance use type: does not use Do You Feel Safe in your Home?: Yes Lack of Transportation: No Lack of Food: Never True Current Housing: I Have Housing Concerned About Future Housing: No Difficulty Paying Gas/Electric Bills: No Difficulty Paying for Meds: No Currently Unemployed: No Education: High School Diploma/GED Difficulty w/ Childcare or Family Care: No Additional living arrangements comments: Lives with son Robel and [id number] Edith in [place]. 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 Spiritual care concerns: No Meds Home Medications and Allergies Home Medications ?Medication ?Instructions ?Recorded ?Confirmed ?Type amlodipine 10 mg tablet 10 mg PO DAILY 04/22/24 07/22/25 History atorvastatin 80 mg tablet 80 mg PO DAILY 04/22/24 07/22/25 History blood sugar diagnostic (OneTouch 04/22/24 07/22/25 History Ultra Test strips) clopidogrel 75 mg tablet 75 mg PO DAILY 04/22/24 07/22/25 History gabapentin 100 mg capsule 100 mg PO DAILY 04/22/24 07/22/25 History insulin degludec 200 unit/mL (3 15 unit subcut HS PRN Hyperglycemia 04/22/24 07/22/25 History mL) subcutaneous pen (Tresiba FlexTouch U-200 insulin) metformin 500 mg tablet,extended 500 mg PO BID 04/22/24 07/22/25 History release 24 hr aspirin 81 mg capsule 81 mg PO DAILY #30 caps 04/24/24 07/22/25 Rx amoxicillin 875 mg-potassium 1 tablet PO Q12H 07/22/25 07/22/25 History clavulanate 125 mg tablet hydrocodone 5 mg-acetaminophen 325 1 tablet PO Q6H PRN pain 07/22/25 07/22/25 History mg tablet Allergies Allergy/AdvReac Type Severity Reaction Status Date / Time gemfibrozil Allergy Difficulty Verified 07/22/25 10:05 Breathing lisinopril Allergy Anaphylaxis Verified 07/22/25 10:05 Vital Signs Vital Signs - 24 hr 07/22/25 04:54 07/22/25 04:57 07/22/25 04:59 Temperature 98.8 F Pulse Rate 81 81 82 Respiratory Rate 16 19 Blood Pressure 135/74 Pulse Oximetry 96 97 Oxygen Delivery Room Air 07/22/25 05:00 07/22/25 05:17 07/22/25 05:27 Temperature Pulse Rate 79 79 78 Respiratory Rate 16 18 18 Blood Pressure 132/76 Pulse Oximetry 95 93 Oxygen Delivery 07/22/25 05:44 07/22/25 05:45 07/22/25 05:46 Temperature Pulse Rate 75 85 77 Respiratory Rate 17 16 17 Blood Pressure 119/51 L Pulse Oximetry 95 95 98 Oxygen Delivery 07/22/25 06:00 07/22/25 07:03 07/22/25 10:10 Temperature Pulse Rate 75 73 Respiratory Rate 17 17 Blood Pressure 109/50 L Pulse Oximetry 98 98 Oxygen Delivery Room Air Exam Narrative: Patient is fully conscious alert however he is hard of hearing. Does appear to have some difficulty understanding and following 2 step commands and at best we can food mild mixed aphasia however evaluation is limited due to hearing loss. He does not appear to be delusional or hallucinating at this time. He did recognize family members. No dysarthria. Does try to repeat words or sentences however made error in the left and right intention or asked to touch his right he was the left hand he seems to be mixed up. Head and neck shows no evidence of external trauma. No nuchal rigidity. No carotid bruit. Heart sounds were normal. no murmur. Cranial nerves show pupils were equal reacting. Visual stark could not reliably tested. No facial asymmetry. Tongue was midline. Palate moves symmetrically. Motor system normal power in both upper and lower limbs although he did not want to cooperate much with the lower limbs in view of the pain. Deep tendon reflexes did not show any significant asymmetry. No spasticity or involuntary movements were seen. Sensory examination grossly intact but somewhat limited in view of speech difficulties and hearing loss. No nystagmus seen. Gait was not tested at this time. Const: General: cooperative HENMT: Head: atraumatic Mouth: Yes oropharynx normal Eyes: Alignment and Position: alignment normal and position normal EOM: EOMs intact bilaterally Neck: Neck: normal visual inspection and supple Resp: Effort & Inspection: normal respiratory effort Cardio: Heart sounds: S1 normal heart sound present and S2 normal heart sound present Skin: General skin exam: normal color Neuro: Cranial nerves: Yes CN's II-XII intact bilaterally, Yes facial symmetry and Yes Midline tongue present Extrem: General: normal to inspection Results Labs 07/22/25 05:01 07/22/25 05:01 Labs: Short CBC 07/22/25 Range/Units 05:01 WBC 11.4 H (4.5-10.0) K/mm3 Hgb 13.0 L (14.0-18.0) g/dL Hct 38.5 L (42.0-52.0) % Plt Count 109 L (150-375) k/mm3 BMP 07/22/25 05:01 Sodium 135 L Potassium 4.4 Chloride 98 Carbon Dioxide 27 BUN 22 H D Creatinine 0.99 Glucose 229 H Calcium 9.1 Cardiac Enzymes 07/22/25 Range/Units 05:01 Total Creatine Kinase 61 (55-170) U/L Troponin I 0.014 (0.000-0.034) ng/mL Liver Function 07/22/25 Range/Units 05:01 Total Bilirubin 1.1 (0.2-1.3) mg/dL AST 25 (17-59) U/L ALT 24 (6-50) U/L Alkaline Phosphatase 69 (38-126) U/L Albumin 4.1 (3.5-5.1) g/dL Urine 07/22/25 Range/Units 05:58 Urine Color Yellow (Yellow) Urine Appearance Clear (Clear) Urine pH 5.5 (5.0-9.0) Ur Specific [place] 1.021 (1.001-1.035) Urine Protein Trace (Negative) mg/dL Urine Glucose (UA) 1+ H (Negative) mg/dL
[2025-07-22 11:54] LABS: Cholesterol 85 mg/dL (0-200); HDL Direct 38 mg/dL; Triglycerides 76 mg/dL (<150)
--- NOTE | 2025-07-22 12:36 | P.HP_ITS ---
H&P: HPI History of Present Illness Date/Time: 07/22/25 12:36 Chief Complaint: Altered mental status Narrative: 85yo male with hx of CVA and resulting aphasia/dysphagia, DM, HTN and probably dementia who was brought in after being found down and with increasing confusion. Patient had a CVA in April 2024 with dysphagia and aphasia. He had to learn to eat again. He lives with family and they have noticed a slow incremental decline since the stroke. More recently over the past 2-3 weeks, they have noticed patient more confused, staring at times, increased weakness, refusing medications and increase in sleeping pattern. He had his top teeth removed last week to be fitted for dentures and is currently on abx for this. No odynophagia, dysphagia, cough or fevers recently. Patient lives in a basement apartment and was last seen well around 430pm. The family heard the dog bark around 1am but thought nothing more about it. At 330am, family found the patient on his elbows and knees in his kitchen. There was evidence of emesis and that some items had been knocked to the ground. They were able to get him up but the patient had very poor tone. They sat him in the chair but he was falling forward. EMS was called. In the ED, patient was hemodynamically stable. WBC 11.4K, Hgb 13 and plt count low at 109K. Sodium 135, BUN 22 and glucose 229 o/w CMP normal. Troponin , total CK ,lactic normal and TSH normal. UA not consistent with UTI. EKG showing no acute ST or T wave changes. CXR was clear. Cervical spine showing no fracture. Head CT showing no acute intracranial process. 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 Brain MRI after admission shows a small acute infarct left gokul. He was given Plavix and ASA. 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 Drinks a beer on occasion with family. Healthcare power of claims attorney: Robel and Osmany Vaz, sons Code status: DNR Years smoked: 20 Smoking status: Former smoker Tobacco type: cigarettes Second hand tobacco smoke exposure: No Additional smoking assessment comments: Remote smoker. Alcohol intake: current Drinks per week: 7 Substance use: never Substance use type: does not use Do You Feel Safe in your Home?: Yes Lack of Transportation: No Lack of Food: Never True Current Housing: I Have Housing Concerned About Future Housing: No Difficulty Paying Gas/Electric Bills: No Difficulty Paying for Meds: No Currently Unemployed: No Education: High School Diploma/GED Difficulty w/ Childcare or Family Care: No Additional living arrangements comments: Lives with son Robel and [id number] Edith in [place]. 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 Spiritual care concerns: No Meds Home Medications and Allergies Home Medications ?Medication ?Instructions ?Recorded ?Confirmed ?Type amlodipine 10 mg tablet 10 mg PO DAILY 04/22/2406/27 History atorvastatin 80 mg tablet 80 mg PO DAILY 04/22/2406/27 History blood sugar diagnostic (OneTouch 04/22/24 07/22/25 Stream5 story Ultra Test strips) clopidogrel 75 mg tablet 75 mg PO DAILY 04/22/2406/27 History gabapentin 100 mg capsule 100 mg PO DAILY 04/22/24 History insulin degludec 200 unit/mL (3 15 unit subcut HS PRN Hyperglycemia 04/22/24 07/22/25 History mL) subcutaneous pen (Tresiba FlexTouch U-200 insulin) metformin 500 mg tablet,extended 500 mg PO BID 4 07/22/25 History release 24 hr aspirin 81 mg capsule 81 mg PO DAILY #30 caps 03/2807/22/25 Rx amoxicillin 875 mg-potassium 1 tablet PO Q12H 07/22/25 07/22/25 History clavulanate 125 mg tablet hydrocodone 5 mg-acetaminophen 325 1 tablet PO Q6H PRN pain 07/22/25 07/22/25 History mg tablet Allergies Allergy/AdvReac Type Severity Reaction Status Date / Time gemfibrozil Allergy Difficulty Verified 07/22/25 10:05 Breathing lisinopril Allergy Anaphylaxis Verified 07/22/25 10:05 Vital Signs Vital Signs - 24 hr 07/22/25 04:54 07/22/25 04:57 07/22/25 04:59 Temperature 98.8 F Pulse Rate 81 81 82 Respiratory Rate 16 19 Blood Pressure 135/74 Pulse Oximetry 96 97 Oxygen Delivery Room Air 07/22/25 05:00 07/22/25 05:17 07/22/25 05:27 Temperature Pulse Rate 79 79 78 Respiratory Rate 16 18 18 Blood Pressure 132/76 Pulse Oximetry 95 93 Oxygen Delivery 07/22/25 05:44 07/22/25 05:45 07/22/25 05:46 Temperature Pulse Rate 75 85 77 Respiratory Rate 17 16 17 Blood Pressure 119/51 L Pulse Oximetry 95 95 98 Oxygen Delivery 07/22/25 06:00 07/22/25 07:03 07/22/25 10:10 Temperature Pulse Rate 75 73 Respiratory Rate 17 17 Blood Pressure 109/50 L Pulse Oximetry 98 98 Oxygen Delivery Room Air Exam Narrative: AF 98.8 109/50 73 17 98% ra Gen - well appearing elderly male in no acute respiratory distress who is nontoxic-appearing lying semi recumbent in bed HEENT - normocephalic. Atraumatic. Pupils equal round and reactive. Oropharynx not visualized. Tachy mucous membranes. Tongue was midline. No facial asymmetry. Neck - neck was supple. No dominant adenopathy, thyromegaly or masses. 2+ carotid upstrokes without bruits. Chest - lungs are clear to auscultation bilaterally. No wheezes or crackles. CV - heart was regular rate and rhythm. S1-S2. 2/6 systolic murmur Rt USB. Abd - abdomen was soft. Nondistended. Positive bowel sounds. Suprapubic fullness and tenderness. Ext - no clubbing, cyanosis or edema. 1+ PT pulses bilaterally. Neuro - patient is somnolent but arouses. Garbled and mumbling speech. No obvious focal weakness. Psych - follows commands at times. Skin - warm and dry. No rashes noted. H&P: Results Labs Labs: Short CBC 07/22/25 Range/Units 05:01 WBC 11.4 H (4.5-10.0) K/mm3 Hgb 13.0 L (14.0-18.0) g/dL Hct 38.5 L (42.0-52.0) % Plt Count 109 L (150-375) k/mm3 BMP 07/22/25 05:01 Sodium 135 L Potassium 4.4 Chloride 98 Carbon Dioxide 27 BUN 22 H D Creatinine 0.99 Glucose 229 H Calcium 9.1 Cardiac Enzymes 07/22/25 Range/Units 05:01 Total Creatine Kinase 61 (55-170) U/L Troponin I 0.014 (0.000-0.034) ng/mL Liver Function 07/22/25 Range/Units 05:01 Total Bilirubin 1.1 (0.2-1.3) mg/dL AST 25 (17-59) U/L ALT 24 (6-50) U/L Alkaline Phosphatase 69 (38-126) U/L Albumin 4.1 (3.5-5.1) g/dL Urine 07/22/25 Range/Units 05:58 Urine Color Yellow (Yellow) Urine Appearance Clear (Clear) Urine pH 5.5 (5.0-9.0) Ur Specific [place] 1.021 (1.001-1.035) Urine Protein Trace (Negative) mg/dL Urine Glucose (UA) 1+ H (Negative) mg/dL Assessment and Plan Assessment and plan (1) Cerebrovascular accident: Qualifiers: CVA mechanism: unspecified Qualified Code(s): I63.9 - Cerebral infarction, unspecified Code(s): I63.9 - Cerebral infarction, unspecified Status: Acute Assessment and Plan: Patient found down at home. MRI showing small left gokul CVA. Continue Plavix, ASA and Lipitor. Neurology consulted Check Echo PT/OT and ST to evaluate and treat Discussed with neurology. (2) Altered mental status: Code(s): R41.82 - Altered mental status, unspecified Status: Acute Assessment and Plan: Probably related to acute CVA. Does not explain the general decline patient has been experiencing for the past 2-3 weeks. VitD 39.5. TSH normal. B12/folate pending. Consider seizure. EEG ordered (3) Hypertension: Qualifiers: Hypertension type: unspecified Qualified Code(s): I10 - Essential (primary) hypertension Code(s): I10 - Essential (primary) hypertension Status: Acute Assessment and Plan: Blood pressure normal range. Hold off on resuming anti-HTN to allow for permissive HTN. Follow for now (4) Type 2 diabetes mellitus: Qualifiers: Diabetes mellitus intermediate card tender insulin use: with intermediate card tender use Diabetes mellitus complication status: with neurologic complications Diabetes mellitus complication detail: with unspecified neuropathy Qualified Code(s): E11.40 - Type 2 diabetes mellitus with diabetic neuropathy, unspecified; Z79.4 - terminal gauger (current) use of insulin Code(s): E11.9 - Type 2 diabetes mellitus without complications Status: Acute Assessment and Plan: The patient's blood glucose was 229 on admission. Start AccuCheks covering with sliding scale. Hypoglycemia protocol available as needed. Monitor glucose. Diabetic diet (5) Dementia: Code(s): F03.90 - Unspecified dementia, unspecified severity, without behavioral disturbance, psychotic disturbance, mood disturbance, and anxiety Status: Acute Assessment and Plan: Patient most likely with vascular dementia given the slow steady decline since the CVA. Not sure the etiology of the more rapid private branch exchange service advisor the past 2-3 weeks: sz? worsening dementia? Namenda started by neurology Follow Plan DVT Prophylaxis - lovenox Code status - DNR Hospitalist [facility] Advance Care Plan I have confirmed that the patient's Advanced Care Plan is present, code status is documented, or surrogate decision maker is listed in patient medical record.: Yes Medication Reconciliation I have utilized all available resources to obtain, update and review the patients current medications (includes all prescriptions, OTC, herbals, cannabis, and nutritional supplements).: Yes
[2025-07-22 13:07] LABS: Vitamin B12 849.0 pg/mL (239-931)
[2025-07-22] MEDS: ACETAMINOPHEN 325 MG TABLET 650 MG PO (14:44)
--- NOTE | 2025-07-22 17:08 | PCSTNOTE ---
Please refer to the Bedside Swallow Evaluation in the EMR. Please note, silent aspiration cannot be ruled out at bedside. Pt seen for a bedside swallow evaluation this date due to a new CVA present on recent MRI. RN agreeable to evaluation and reports no observed concerns with breakfast or when administering medications. 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 Pt with family at bedside and provided insight into past medical history. Pt's family reports that before this admission pt had no recent dysphagia; however, due to recent dental procedures, pt with no upper dentition and has been eating soft foods at home. Pt's family also states that pt's aphasia symptoms have worsened in the past few weeks. An oral mechanism evaluation was completed and unremarkable. Of note, pt inconsistently followed directives throughout the oral mechanism exam and required repetition and demonstration. PO trials included ice chips, thin liquids via tsp, cup edge, and large bore straw (multiple large 3oz drinks), pudding, and douglas cracker with pudding. Pt demonstrated no overt signs or symptoms of aspiration across all volumes and consistencies. However, it should be noted, that pt demonstrated some mastication of the douglas cracker, but was unable to adequately masticate it and eventually removed it from his mouth with a tissue. His family states that pt typically eats even softer foods (i.e. eggs). Recommendations: 1. Level 6 (Soft and Bite Sized) and Level 0 (Thin liquids) (RN and MD made aware of these recommendations) 2. Upright with all PO, small bites and sips, occasional observation with meals to ensure adequate mastication 3. No further ST services for swallowing indicated at this time; however, a communication evaluation should be completed due to recent worsening of communication status and increased aphasia symptoms. Communication evaluation order placed after consent from MD.
--- NOTE | 2025-07-22 19:53 | PC.NURSE ---
vikki pearl zyprexa 10mg im x 1 dose for aggressive behavior towards staff. Code Reynaldo was called over head at 194
[2025-07-22] MEDS: OLANZapine 10 MG, WATER, STERILE FOR INJECTION 2.1 ML IM (20:25)
[2025-07-23] VITALS: PULSE 105
[2025-07-23 04:00] VITALS: PULSE 76
[2025-07-23 04:57] LABS: Hemoglobin A1C 6.8 % (<5.7)
[2025-07-23 05:07] VITALS: BP 151/64; PULSE 81; RESP 20; TEMP 36.4; O2SAT 98
--- NOTE | 2025-07-23 07:59 | PCNEURO ---
EEG was attempted this AM but patient is to confused and unable to keep still for the setup and tracing. Nurse will call Neuro if he becomes more cooperative.
[2025-07-23 08:21] VITALS: O2SAT 98
--- NOTE | 2025-07-23 08:48 | PC.NURSE ---
Pt is refusing to keep telemetry on. Tried placing it back on patient but continues to pull it off.
[2025-07-23] MEDS: ATORVASTATIN 40 MG TABLET 80 MG PO (09:07)
[2025-07-23] MEDS: MEMANTINE HCL XR 7 MG CAP PO (09:07)
[2025-07-23] MEDS: ENOXAPARIN 40 MG/0.4 ML SYRINGE SUB-Q (09:07)
[2025-07-23] MEDS: GABAPENTIN 100 MG CAPSULE PO (09:07)
[2025-07-23] MEDS: CLOPIDOGREL BISULFATE 75 MG TABLET PO (09:07)
[2025-07-23] MEDS: ASPIRIN 81 MG ENTERIC TABLET PO (09:07)
--- NOTE | 2025-07-23 10:24 | PCPTNOTE ---
The patient treatment was not able to be completed today due to patient unable to follow commands and participate in PT. RN reports patient is not appropriate for therapy today due to increased confusion and agitation. Will plan to continue treatment per plan of care.
--- NOTE | 2025-07-23 12:17 | PCPTNOTE ---
Returned to see patient for treatment and RN reports patient is more alert. Patient participated in PT treatment. See PT treatment note in chart.
[2025-07-23] MEDS: INSULIN ASPART (*BKC) 100 UNITS/ML SUB-Q (12:42)
--- NOTE | 2025-07-23 13:47 | PC.NURSE ---
pt still continuing to refuse telemetry.
[2025-07-23 14:00] VITALS: BP 151/64; PULSE 85; RESP 16; TEMP 36.1; O2SAT 97
--- NOTE | 2025-07-23 16:19 | PC.NURSE ---
Pt is still refusing to were alarm security or surveillance monitor
--- NOTE | 2025-07-23 16:36 | P.PNIM_ITS ---
Progress Note: A&P Assessment and Plan (1) Cerebrovascular accident: Qualifiers: CVA mechanism: unspecified Qualified Code(s): I63.9 - Cerebral infarction, unspecified Code(s): I63.9 - Cerebral infarction, unspecified Status: Acute Assessment and Plan: Patient found down at home. MRI showing small left gokul CVA. Continue Plavix, ASA and Lipitor. Neurology consulted Echo noted and no change from Echo last year with EF 65-70%, no shunt, grade I diastolic dysfunction PT/OT and ST to evaluate and treat (2) Altered mental status: Code(s): R41.82 - Altered mental status, unspecified Status: Acute Assessment and Plan: Probably related to acute CVA. Does not explain the general decline patient has been experiencing for the past 2-3 weeks. VitD 39.5. TSH normal. B12/folate normal. Consider occult seizures vs worsening dementia. Namenda started. EEG ordered. Add low dose Seroquel for agitation. (3) Hypertension: Qualifiers: Hypertension type: unspecified Qualified Code(s): I10 - Essential (primary) hypertension Code(s): I10 - Essential (primary) hypertension Status: Acute Assessment and Plan: Blood pressure mildly elevated. Hold off on resuming anti-HTN to allow for permissive HTN but will resume tomorrow. Follow for now (4) Type 2 diabetes mellitus: Qualifiers: Diabetes mellitus complication detail: with unspecified neuropathy Diabetes mellitus complication status: with neurologic complications Diabetes mellitus terminal operations supervisor insulin use: with terminal operations supervisor use Qualified Code(s): E11.40 - Type 2 diabetes mellitus with diabetic neuropathy, unspecified; Z79.4 - shelter (current) use of insulin Code(s): E11.9 - Type 2 diabetes mellitus without complications Status: Acute Assessment and Plan: A1c 6.8%. The patient's blood glucose was 229 on admission probably stress response. The patient's blood glucose was reviewed on 07/23 Glucose remains poorly controlled. Continue AccuCheks covering with sliding scale. Hypoglycemia protocol available as needed. Add Lantus at night. Continue Diabetic diet (5) Dementia: Code(s): F03.90 - Unspecified dementia, unspecified severity, without behavioral disturbance, psychotic disturbance, mood disturbance, and anxiety Status: Acute Assessment and Plan: Patient most likely with vascular dementia given the slow steady decline since the CVA. Not sure the etiology of the more rapid business change manager the past 2-3 weeks: sz? worsening dementia? Namenda started by neurology Follow Plan DVT Prophylaxis - lovenox Code status - DNR Subjective Date/time seen: 07/23/25 16:36 Interval history: 85yo male with hx of CVA and resulting aphasia/dysphagia, DM, HTN and probably dementia who was brought in after being found down and with increasing confusion. Patient is more alert but confused so unable to provide hx. He was more combative last night and family called in. Olanzapine 10mg once given. Review of Systems Review of Systems: ROS unobtainable: Yes unobtainable due to mental status Exam Narrative: AF97.0 151/64 85 16 97% ra Gen - NARD Chest - clear anteriorly. nml RR CV - RRR S1/S2. Tele showing no significant dysrhythmias (tele currently off due to causing agitation) Abd - soft, NT/ND. Ext - no pedal edema. Neuro - patient more alert. garbled and nonsensical speech. Psych - follows commands at times. Skin - warm and dry. Objective Data Vital Signs Vital Signs: Vital Signs - 24 hr 07/22/25 20:00 07/22/25 21:42 07/23/25 00:00 Temperature 97.9 F Pulse Rate 81 80 105 H Respiratory Rate 20 Blood Pressure 157/57 H Pulse Oximetry 97 Oxygen Delivery 07/23/25 04:00 07/23/25 05:07 07/23/25 08:00 Temperature 97.5 F L Pulse Rate 76 81 Respiratory Rate 20 Blood Pressure 151/64 H Pulse Oximetry 98 Oxygen Delivery Room Air 07/23/25 08:21 07/23/25 13:06 07/23/25 14:00 Temperature 97.0 F L Pulse Rate 85 Respiratory Rate 16 Blood Pressure 151/64 H Pulse Oximetry 98 97 Oxygen Delivery Room Air Room Air Intake/Output Intake/Output: Intake & Output 07/20/25 07/21/25 07/22/25 07/23/25 23:59 23:59 23:59 23:59 Intake Total 360 1200 Balance 360 1200 Meds/Results Medications: Active Medications Generic Name Dose Route Start Last Admin Trade Name Freq PRN Reason Stop Dose Admin Acetaminophen 650 mg 07/22/25 14:36 07/22/25 14:44 Acetaminophen 325 Mg Tablet PO 650 mg Q6H PRN Administration Mild Pain (1-5) Or Fever Hydrocodone Bitart/Acetaminophen 1 tab 07/23/25 07:05 Hydrocodone/Acetaminophen (*Crx) 5-325 Mg Tablet PO Q6H PRN Pain Rated 6 or Greater Amoxicillin/Clavulanate Potassium 1 tablet 07/23/25 09:00 07/23/25 09:07 Amoxicillin/Clavulanate K 875-125 Mg Tab PO 1 tablet Q12HR DAVID Administration Aspirin 81 mg 07/23/25 09:00 07/23/25 09:07 Aspirin 81 Mg Enteric Tablet PO 81 mg QAM DAVID Administration Atorvastatin Calcium 80 mg 07/23/25 09:00 07/23/25 09:07 Atorvastatin 40 Mg Tablet PO 80 mg DAILY DAVID Administration Clopidogrel Bisulfate 75 mg 07/23/25 09:00 07/23/25 09:07 Clopidogrel Bisulfate 75 Mg Tablet PO 75 mg QAM DAVID Administration Dextrose 12.5 gm 07/22/25 13:07 Dextrose 50% 25 Gm/50 Ml Syringe IV PUSH PRN PRN Hypoglycemia Protocol Enoxaparin Sodium 40 mg 07/23/25 09:00 07/23/25 09:07 Enoxaparin 40 Mg/0.4 Ml Syringe SUB-Q 40 mg DAILY DAVID Administration Gabapentin 100 mg 07/23/25 09:00 07/23/25 09:07 Gabapentin 100 Mg Capsule PO 100 mg DAILY DAVID Administration Glucagon 1 mg 07/22/25 13:07 Glucagon For Inj 1 Mg Vial IM PRN PRN Hypoglycemia Protocol Glucose 15 gm 07/22/25 13:07 Glucose Oral Gel 15 Gm Of Glucse In 37.5 Gm Tube PO PRN PRN Hypoglycemia Protocol Dextrose 1,000 mls @ 100 mls/hr 07/22/25 13:07 Dextrose 5% 1,000 Ml IVPB PRN PRN Hypoglycemia Protocol Insulin Aspart 2 - 5 units 07/22/25 17:00 07/23/25 12:42 Insulin Aspart (*Bkc) 100 Units/Ml SUB-Q 2 units TIDWM DAVID Administration Protocol Memantine 7 mg 07/23/25 09:00 07/23/25 09:07 Memantine Hcl Xr 7 Mg Cap PO 7 mg DAILY DAVID Administration Perflutren Lipid Microsphere 0 ml 07/22/25 13:03 Perflutren Lipid Microspheres 1.5 Ml Vial Diluted To 10 Ml Total Volume IV PUSH 07/25/25 13:03 ONCE PRN adequate visualization Protocol Radiology Results: ITS Impressions Chest X-Ray 07/22/25 05:33 IMPRESSION: 1. No acute cardiopulmonary findings given portable technique. Cervical Spine CT 07/22/25 06:00 IMPRESSION: HEAD: 1. No acute intracranial findings. C-SPINE: 1. No acute fracture. Head CT 07/22/25 06:00 IMPRESSION: HEAD: 1. No acute intracranial findings. C-SPINE: 1. No acute fracture. Head/Neck CTA 07/22/25 06:33 IMPRESSION: CTA NECK: 1. Patent cervical arteries without acute abnormality. CTA HEAD: 1. No large vessel arterial occlusive disease or acute abnormality. 2. 3 mm aneurysm left carotid terminus. Recommend endovascular consultation and surveillance. Brain MRI 07/22/25 12:26 IMPRESSION: 1. Small acute infarct in the gokul on the left. 2. Old infarct involving the left frontoparietal region and left insula. Labs Labs: Laboratory Results - last 24 hr 07/22/25 07/22/25 07/23/25 16:48 21:33 04:31 POC Capillary Glucose 158 H 201 H Hemoglobin A1c 6.8 H 07/23/25 07/23/25 07:41 12:16 POC Capillary Glucose 198 H 245 H Hemoglobin A1c
[2025-07-23 19:32] VITALS: BP 149/65; PULSE 80; RESP 18; TEMP 37.4; O2SAT 93
[2025-07-24 03:04] VITALS: BP 140/61; PULSE 77; RESP 18; TEMP 36.4; O2SAT 99
[2025-07-24] MEDS: ASPIRIN 81 MG ENTERIC TABLET PO (08:44)
[2025-07-24] MEDS: ATORVASTATIN 40 MG TABLET 80 MG PO (08:44)
[2025-07-24] MEDS: CLOPIDOGREL BISULFATE 75 MG TABLET PO (08:44)
[2025-07-24] MEDS: MEMANTINE HCL XR 7 MG CAP PO (08:44)
[2025-07-24] MEDS: ENOXAPARIN 40 MG/0.4 ML SYRINGE SUB-Q (08:44)
[2025-07-24] MEDS: GABAPENTIN 100 MG CAPSULE PO (08:44)
--- NOTE | 2025-07-24 09:51 | P.PNIM_ITS ---
Progress Note: A&P Assessment and Plan (1) Cerebrovascular accident: Qualifiers: CVA mechanism: unspecified Qualified Code(s): I63.9 - Cerebral infarction, unspecified Code(s): I63.9 - Cerebral infarction, unspecified Status: Acute Assessment and Plan: Patient found down at home. MRI showing small left gokul CVA. Continue Plavix, ASA and Lipitor. Neurology consulted Echo noted and no change from Echo last year with EF 65-70%, no shunt, grade I diastolic dysfunction PT/OT and ST to evaluate and treat 07/24: Educated pt and [id number] on neuro's plan for EEG and to work with therapy. (2) Altered mental status: Code(s): R41.82 - Altered mental status, unspecified Status: Acute Assessment and Plan: Probably related to acute CVA. Does not explain the general decline patient has been experiencing for the past 2-3 weeks. VitD 39.5. TSH normal. B12/folate normal. Consider occult seizures vs worsening dementia. Namenda started. EEG ordered. Add low dose Seroquel for agitation. 07/24: Neuro following -EEG pending (3) Hypertension: Qualifiers: Hypertension type: unspecified Qualified Code(s): I10 - Essential (primary) hypertension Code(s): I10 - Essential (primary) hypertension Status: Acute Assessment and Plan: Blood pressure mildly elevated. Hold off on resuming anti-HTN to allow for permissive HTN but will resume tomorrow. Follow for now 07/24: 140/61 today -Amlodipine home dose of 10mg daily started again today (4) Type 2 diabetes mellitus: Qualifiers: Diabetes mellitus complication detail: with unspecified neuropathy Diabetes mellitus complication status: with neurologic complications Diabetes mellitus longwall headgate operator insulin use: with longwall headgate operator use Qualified Code(s): E11.40 - Type 2 diabetes mellitus with diabetic neuropathy, unspecified; Z79.4 - group home (current) use of insulin Code(s): E11.9 - Type 2 diabetes mellitus without complications Status: Acute Assessment and Plan: A1c 6.8%. The patient's blood glucose was 229 on admission probably stress response. The patient's blood glucose was reviewed on 07/23 Glucose remains poorly controlled. Continue AccuCheks covering with sliding scale. Hypoglycemia protocol available as needed. Add Lantus at night. Continue Diabetic diet 07/24: -FBS 140 this AM, continue to monitor (5) Dementia: Code(s): F03.90 - Unspecified dementia, unspecified severity, without behavioral disturbance, psychotic disturbance, mood disturbance, and anxiety Status: Acute Assessment and Plan: Patient most likely with vascular dementia given the slow steady decline since the CVA. Not sure the etiology of the more rapid microsoft exchange administrator the past 2-3 weeks: sz? worsening dementia? Namenda started by neurology Follow 07/24: Educated pt and [id number] on neuro's plan for EEG, continuation of Namenda, and to work with therapy. -Seroquel started for PO daily use for agitation Plan DVT Prophylaxis - lovenox Code status - DNR EEG, PT/OT/ST pending Time Spent With Patient Time: 40 Subjective Date/time seen: 07/24/25 1107 Interval history: 85yo male with hx of CVA and resulting aphasia/dysphagia, DM, HTN and probably dementia who was brought in after being found down and with increasing confusion. Pt sitting up in chair in no distress with [id number] at the bedside. Pt continues to be disorientated with baseline aphasia. Explained POC with him and [id number], all questions addressed. Review of Systems Review of Systems: ROS unobtainable: Yes unobtainable due to mental status Exam Const: General: comfortable and no acute distress HENMT: Face/Nose/Sinus: Normal nares present Mouth: Yes moist mucous membranes Eyes: General: appearance normal, both eyes and all related structures Sclera: sclerae normal Neck: Neck: supple Resp: Effort & Inspection: normal respiratory effort Auscultation: clear to auscultation bilaterally Cardio: Rate: regular rate Rhythm: regular rhythm Skin: General skin exam: normal color and no rashes or lesions noted Neuro: Motor exam (neuro): Normal motor muscle tone present throughout Other: garbled and nonsensical speech. Extrem: General: normal to inspection Psych: Other: follows commands at times, calm Objective Data Vital Signs Vital Signs: Vital Signs - 24 hr 07/23/25 13:06 07/23/25 14:00 07/23/25 19:32 Temperature 97.0 F L 99.4 F Pulse Rate 85 80 Respiratory Rate 16 18 Blood Pressure 151/64 H 149/65 H Pulse Oximetry 97 93 Oxygen Delivery Room Air 07/23/25 20:00 07/24/25 03:04 Temperature 97.6 F Pulse Rate 77 Respiratory Rate 18 Blood Pressure 140/61 Pulse Oximetry 99 Oxygen Delivery Room Air Intake/Output Intake/Output: Intake & Output 07/21/25 07/22/25 07/23/25 07/24/25 23:59 23:59 23:59 23:59 Intake Total 360 1500 0 Balance 360 1500 0 Meds/Results Medications: Active Medications Generic Name Dose Route Start Last Admin Trade Name Freq PRN Reason Stop Dose Admin Acetaminophen 650 mg 07/22/25 14:36 07/22/25 14:44 Acetaminophen 325 Mg Tablet PO 650 mg Q6H PRN Administration Mild Pain (1-5) Or Fever Hydrocodone Bitart/Acetaminophen 1 tab 07/23/25 07:05 Hydrocodone/Acetaminophen (*Crx) 5-325 Mg Tablet PO Q6H PRN Pain Rated 6 or Greater Amoxicillin/Clavulanate Potassium 1 tablet 07/23/25 09:00 07/24/25 08:44 Amoxicillin/Clavulanate K 875-125 Mg Tab PO 1 tablet Q12HR DAVID Administration Aspirin 81 mg 07/23/25 09:00 07/24/25 08:44 Aspirin 81 Mg Enteric Tablet PO 81 mg QAM DAVID Administration Atorvastatin Calcium 80 mg 07/23/25 09:00 07/24/25 08:44 Atorvastatin 40 Mg Tablet PO 80 mg DAILY DAVID Administration Clopidogrel Bisulfate 75 mg 07/23/25 09:00 07/24/25 08:44 Clopidogrel Bisulfate 75 Mg Tablet PO 75 mg QAM DAVID Administration Dextrose 12.5 gm 07/22/25 13:07 Dextrose 50% 25 Gm/50 Ml Syringe IV PUSH PRN PRN Hypoglycemia Protocol Enoxaparin Sodium 40 mg 07/23/25 09:00 07/24/25 08:44 Enoxaparin 40 Mg/0.4 Ml Syringe SUB-Q 40 mg DAILY DAVID Administration Gabapentin 100 mg 07/23/25 09:00 07/24/25 08:44 Gabapentin 100 Mg Capsule PO 100 mg DAILY DAVID Administration Glucagon 1 mg 07/22/25 13:07 Glucagon For Inj 1 Mg Vial IM PRN PRN Hypoglycemia Protocol Glucose 15 gm 07/22/25 13:07 Glucose Oral Gel 15 Gm Of Glucse In 37.5 Gm Tube PO PRN PRN Hypoglycemia Protocol Dextrose 1,000 mls @ 100 mls/hr 07/22/25 13:07 Dextrose 5% 1,000 Ml IVPB PRN PRN Hypoglycemia Protocol Insulin Aspart 2 - 5 units 07/22/25 17:00 07/24/25 08:43 Insulin Aspart (*Bkc) 100 Units/Ml SUB-Q Not Given TIDWM DAVID Protocol Insulin Glargine 6 units 07/23/25 21:00 07/24/25 00:18 Insulin Glargine (*Bkc) 100 Units/Ml SUB-Q Not Given HS DAVID Memantine 7 mg 07/23/25 09:00 07/24/25 08:44 Memantine Hcl Xr 7 Mg Cap PO 7 mg DAILY DAVID Administration Perflutren Lipid Microsphere 0 ml 07/22/25 13:03 Perflutren Lipid Microspheres 1.5 Ml Vial Diluted To 10 Ml Total Volume IV PUSH 07/25/25 13:03 ONCE PRN adequate visualization Protocol Quetiapine Fumarate 12.5 mg 07/23/25 21:00 07/24/25 03:00 Quetiapine Fumarate 12.5 Mg Tablet PO Not Given HS [facility] Radiology Results: ITS Impressions Chest X-Ray 07/22/25 05:33 IMPRESSION: 1. No acute cardiopulmonary findings given portable technique. Cervical Spine CT 07/22/25 06:00 IMPRESSION: HEAD: 1. No acute intracranial findings. C-SPINE: 1. No acute fracture. Head CT 07/22/25 06:00 IMPRESSION: HEAD: 1. No acute intracranial findings. C-SPINE: 1. No acute fracture. Head/Neck CTA 07/22/25 06:33 IMPRESSION: CTA NECK: 1. Patent cervical arteries without acute abnormality. CTA HEAD: 1. No large vessel arterial occlusive disease or acute abnormality. 2. 3 mm aneurysm left carotid terminus. Recommend endovascular consultation and surveillance. Brain MRI 07/22/25 12:26 IMPRESSION: 1. Small acute infarct in the gokul on the left. 2. Old infarct involving the left frontoparietal region and left insula. Labs Labs: Laboratory Results - last 24 hr 07/23/25 07/23/25 07/23/25 12:16 18:44 19:37 POC Capillary Glucose 245 H 136 H 134 H 07/24/25 08:18 POC Capillary Glucose 140 H Quality VTE Prophylaxis VTE prophylaxis: mechanical ordered and pharmacologic ordered
[2025-07-24 13:29] VITALS: BP 118/47; PULSE 81; RESP 16; TEMP 36.4; O2SAT 96
[2025-07-24] MEDS: QUEtiapine FUMARATE 12.5 MG TABLET PO (20:21)
[2025-07-24] MEDS: INSULIN GLARGINE (*BKC) 100 UNITS/ML 6 UNITS SUB-Q (20:21)
[2025-07-24 22:00] VITALS: BP 137/64; PULSE 91; RESP 18; TEMP 36.2; O2SAT 96
[2025-07-25 04:51] LABS: Hematocrit 41.5 % (42.0-52.0); Hemoglobin 13.8 g/dL (14.0-18.0); Immature Granulocyte Percent A 0.8 % (0-0.5); Lymphocytes Absolute Auto 1.18 K/mm3 (0.9-3.2); Mean Corpuscular HGB Conc 33.3 g/dl (32-36); Mean Corpuscular Hemoglobin 31.7 pg (26-34); Mean Corpuscular Volume 95.4 fl (80-100); Nucleated Red Blood Cells Absolute Auto 0.000 K/mm3 (0.0-0.012); Nucleated Red Blood Cells Perc 0.0 % (0.0-0.2); Platelet Count Result 126 k/mm3 (150-375); Red Blood Count 4.35 M/mm3 (4.6-6.20); White Blood Count 10.5 K/mm3 (4.5-10.0)
[2025-07-25 05:52] LABS: Alanine Aminotransferase 23 U/L (6-50); Albumin Level 4.4 g/dL (3.5-5.1); Alkaline Phosphatase 67 U/L (38-126); Anion Gap 17 mmol/L (4-12); Aspartate Amino Transferase 31 U/L (17-59); Bilirubin,Total 1.3 mg/dL (0.2-1.3); Blood Urea Nitrogen 31 mg/dL (9-20); Calcium 9.1 mg/dL (8.4-10.2); Carbon Dioxide 18 mmol/L (22-30); Chloride 95 mmol/L (98-107); Estimated CRCL calculation 30 ml/min; Estimated Glomerular Filt Rate 40; Glucose 174 mg/dL (65-110); Potassium 4.5 mmol/L (3.4-5.0); Sodium 130 mmol/L (137-145); Total Protein 7.0 g/dL (6.3-8.2)
[2025-07-25 06:00] VITALS: BP 92/43; PULSE 99; RESP 18; TEMP 36.2; O2SAT 94
--- NOTE | 2025-07-25 07:27 | P.PNIM_ITS ---
Progress Note: A&P Assessment and Plan (1) Cerebrovascular accident: Qualifiers: CVA mechanism: unspecified Qualified Code(s): I63.9 - Cerebral infarction, unspecified Code(s): I63.9 - Cerebral infarction, unspecified Status: Acute Assessment and Plan: * Patient found down at home. MRI showing small left gokul CVA. * Continue Plavix, ASA and Lipitor. * Echo noted and no change from Echo last year with EF 65-70%, no shunt, grade I diastolic dysfunction * PT/OT and ST to evaluate and treat * EEG: Abnormal EEG due to presence of moderate diffuse background slowing suggestive generalized cephalopathy, such as may be seen with bihemispheric lesion, metabolic encephalopathy or postictal state, however no focal or paroxysmal epileptiform abnormalities were seen. * Neurology consulted, appreciate further recommendations * Continue Namenda * gradually increase up to 28 mg a in 3-4 weeks time * PT/OT recommending further rehab - has been accepted at [facility] (2) Altered mental status: Code(s): R41.82 - Altered mental status, unspecified Status: Acute Assessment and Plan: * Probably related to acute CVA. Does not explain the general decline patient has been experiencing for the past 2-3 weeks. * VitD 39.5. TSH normal. B12/folate normal. * Consider occult seizures vs worsening dementia. * Namenda started. EEG ordered. Add low dose Seroquel for agitation. * See above (3) Hypertension: Qualifiers: Hypertension type: unspecified Qualified Code(s): I10 - Essential (primary) hypertension Code(s): I10 - Essential (primary) hypertension Status: Acute Assessment and Plan: * Blood pressure mildly elevated. * Hold off on resuming anti-HTN to allow for permissive HTN but will resume tomorrow. * Follow for now * Amlodipine home dose of 10mg daily started again (4) Seizure disorder: Code(s): G40.909 - Epilepsy, unspecified, not intractable, without status epilepticus Status: Acute Assessment and Plan: * EEG: Abnormal EEG due to presence of moderate diffuse background slowing suggestive generalized cephalopathy, such as may be seen with bihemispheric lesion, metabolic encephalopathy or postictal state, however no focal or paroxysmal epileptiform abnormalities were seen * Neurology to start Depakot ER 500mg @ bedtime * Follow up in the outpt setting for monitoring (5) Type 2 diabetes mellitus: Qualifiers: Diabetes mellitus complication detail: with unspecified neuropathy Diabetes mellitus complication status: with neurologic complications Diabetes mellitus remote computer terminal operator insulin use: with remote computer terminal operator use Qualified Code(s): E11.40 - Type 2 diabetes mellitus with diabetic neuropathy, unspecified; Z79.4 - group home (current) use of insulin Code(s): E11.9 - Type 2 diabetes mellitus without complications Status: Acute Assessment and Plan: * A1c 6.8%. The patient's blood glucose was 229 on admission probably stress response. * The patient's blood glucose was reviewed on 07/23 * Glucose remains poorly controlled. * Continue AccuCheks covering with sliding scale. Hypoglycemia protocol available as needed. * Add Lantus at night. 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 * Not sure the etiology of the more rapid exchange consultant the past 2-3 weeks: sz? worsening dementia? * Namenda started by neurology - gradually increase up to 28 mg in 3-4 weeks time * Seroquel started for PO daily use for agitation Plan DVT Prophylaxis - lovenox Code status - DNR Subjective Date/time seen: 07/25/25 07:27 Interval history: 85yo male with hx of CVA and resulting aphasia/dysphagia, DM, HTN and probably dementia who was brought in after being found down and with increasing confu maren. 07/25/2025 Patient resting comfortably in bed at time of examination. EEG finish this morning, showed moderate diffuse background slowing suggestive of generalized en cephalopathy, which may be seen in bihemispheric lesion, metabolic encephalopathy or postictal state. PT/OT is recommending SNF - [facility]. Neurology consult still pending, appreciate further recommendations. Continue Namenda Review of Systems Review of Systems: ROS unobtainable: Yes unobtainable due to mental status Exam Narrative: AF97.0 151/64 85 16 97% ra Gen - NARD Chest - clear anteriorly. nml RR CV - RRR S1/S2. Tele showing no significant dysrhythmias (tele currently off due to causing agitation) Abd - soft, NT/ND. Ext - no pedal edema. Neuro - patient more alert. garbled and nonsensical speech. Psych - follows commands at times. Skin - warm and dry. Const: General: comfortable and no acute distress HENMT: Face/Nose/Sinus: Normal nares present Mouth: Yes moist mucous membranes Eyes: General: appearance normal, both eyes and all related structures Sclera: sclerae normal Neck: Neck: supple Resp: Effort & Inspection: normal respiratory effort Auscultation: clear to auscultation bilaterally Cardio: Rate: regular rate Rhythm: regular rhythm Skin: General skin exam: normal color and no rashes or lesions noted Neuro: Motor exam (neuro): Normal motor muscle tone present throughout Other: garbled and nonsensical speech. Extrem: General: normal to inspection Psych: Other: follows commands at times, calm Objective Data Vital Signs Vital Signs: Vital Signs - 24 hr 07/24/25 08:00 07/24/25 13:29 07/24/25 20:00 Temperature 97.5 F L Pulse Rate 81 Respiratory Rate 16 Blood Pressure 118/47 L Pulse Oximetry 96 Oxygen Delivery Room Air Room Air 07/24/25 22:00 07/25/25 06:00 Temperature 97.1 F L 97.1 F L Pulse Rate 91 99 Respiratory Rate 18 18 Blood Pressure 137/64 92/43 L Pulse Oximetry 96 94 Oxygen Delivery Intake/Output Intake/Output: Intake & Output 07/22/25 07/23/25 07/24/25 07/25/25 23:59 23:59 23:59 23:59 Intake Total 360 1500 1090 Balance 360 1500 1090 Meds/Results Medications: Active Medications Generic Name Dose Route Start Last Admin Trade Name Freq PRN Reason Stop Dose Admin Acetaminophen 650 mg 07/22/25 14:36 07/22/25 14:44 Acetaminophen 325 Mg Tablet PO 650 mg Q6H PRN Administration Mild Pain (1-5) Or Fever Hydrocodone Bitart/Acetaminophen 1 tab 07/23/25 07:05 Hydrocodone/Acetaminophen (*Crx) 5-325 Mg Tablet PO Q6H PRN Pain Rated 6 or Greater Amlodipine Besylate 10 mg 07/24/25 09:55 07/24/25 11:13 Amlodipine Besylate 10 Mg Tablet PO 10 mg DAILY DAVID Administration Amoxicillin/Clavulanate Potassium 1 tablet 07/23/25 09:00 07/24/25 20:20 Amoxicillin/Clavulanate K 875-125 Mg Tab PO 1 tablet Q12HR DAVID Administration Aspirin 81 mg 07/23/25 09:00 07/24/25 08:44 Aspirin 81 Mg Enteric Tablet PO 81 mg QAM DAVID Administration Atorvastatin Calcium 80 mg 07/23/25 09:00 07/24/25 08:44 Atorvastatin 40 Mg Tablet PO 80 mg DAILY DAVID Administration Clopidogrel Bisulfate 75 mg 07/23/25 09:00 07/24/25 08:44 Clopidogrel Bisulfate 75 Mg Tablet PO 75 mg QAM DAVID Administration Dextrose 12.5 gm 07/22/25 13:07 Dextrose 50% 25 Gm/50 Ml Syringe IV PUSH PRN PRN Hypoglycemia Protocol Enoxaparin Sodium 40 mg 07/23/25 09:00 07/24/25 08:44 Enoxaparin 40 Mg/0.4 Ml Syringe SUB-Q 40 mg DAILY DAVID Administration Gabapentin 100 mg 07/23/25 09:00 07/24/25 08:44 Gabapentin 100 Mg Capsule PO 100 mg DAILY DAVID Administration Glucagon 1 mg 07/22/25 13:07 Glucagon For Inj 1 Mg Vial IM PRN PRN Hypoglycemia Protocol Glucose 15 gm 07/22/25 13:07 Glucose Oral Gel 15 Gm Of Glucse In 37.5 Gm Tube PO PRN PRN Hypoglycemia Protocol Dextrose 1,000 mls @ 100 mls/hr 07/22/25 13:07 Dextrose 5% 1,000 Ml IVPB PRN PRN Hypoglycemia Protocol Insulin Aspart 2 - 5 units 07/22/25 17:00 07/24/25 17:38 Insulin Aspart (*Bkc) 100 Units/Ml SUB-Q Not Given TIDWM [facility] Protocol Insulin Glargine 6 units 07/23/25 21:00 07/24/25 20:21 Insulin Glargine (*Bkc) 100 Units/Ml SUB-Q 6 units HS DAVID Administration Memantine 7 mg 07/23/25 09:00 07/24/25 08:44 Memantine Hcl Xr 7 Mg Cap PO 7 mg DAILY DAVID Administration Perflutren Lipid Microsphere 0 ml 07/22/25 13:03 Perflutren Lipid Microspheres 1.5 Ml Vial Diluted To 10 Ml Total Volume IV PUSH 07/25/25 13:03 ONCE PRN adequate visualization Protocol Quetiapine Fumarate 12.5 mg 07/23/25 21:00 07/24/25 20:21 Quetiapine Fumarate 12.5 Mg Tablet PO 12.5 mg HS DAVID Administration Radiology Results: ITS Impressions Chest X-Ray 07/22/25 05:33 IMPRESSION: 1. No acute cardiopulmonary findings given portable technique. Cervical Spine CT 07/22/25 06:00 IMPRESSION: HEAD: 1. No acute intracranial findings. C-SPINE: 1. No acute fracture. Head CT 07/22/25 06:00 IMPRESSION: HEAD: 1. No acute intracranial findings. C-SPINE: 1. No acute fracture. Head/Neck CTA 07/22/25 06:33 IMPRESSION: CTA NECK: 1. Patent cervical arteries without acute abnormality. CTA HEAD: 1. No large vessel arterial occlusive disease or acute abnormality. 2. 3 mm aneurysm left carotid terminus. Recommend endovascular consultation and surveillance. Brain MRI 07/22/25 12:26 IMPRESSION: 1. Small acute infarct in the gokul on the left. 2. Old infarct involving the left frontoparietal region and left insula. Labs Labs: Laboratory Results - last 24 hr 07/24/25 07/24/25 07/24/25 08:18 11:37 17:08 WBC RBC Hgb Hct MCV MCH MCHC RDW Plt Count MPV Immature Gran % (Auto) Neut % (Auto) Lymph % (Auto) Gilliam % (Auto) Eos % (Auto) Baso % (Auto) Lymph # (Auto) Gilliam # (Auto) Eos # (Auto) Baso # (Auto) Abs Immat Gran (auto) Absolute Neuts (auto) Absolute Nucleated RBC Nucleated RBC % Sodium Potassium Chloride Carbon Dioxide Anion Gap BUN Creatinine Estim Creat Clear Calc Estimated GFR Glucose POC Capillary Glucose 140 H 135 H 170 H Calcium Total Bilirubin AST ALT Alkaline Phosphatase Total Protein Albumin 07/24/25 07/25/25 20:10 04:17 WBC 10.5 H RBC 4.35 L Hgb 13.8 L Hct 41.5 L MCV 95.4 MCH 31.7 MCHC 33.3 RDW 13.2 Plt Count 126 L MPV 12.2 H Immature Gran % (Auto) 0.8 H Neut % (Auto) 78.0 H Lymph % (Auto) 11.2 L Gilliam % (Auto) 7.7 Eos % (Auto) 1.8 Baso % (Auto) 0.5 Lymph # (Auto) 1.18 Gilliam # (Auto) 0.8 H Eos # (Auto) 0.2 Baso # (Auto) 0.1 Abs Immat Gran (auto) 0.08 H Absolute Neuts (auto) 8.2 H Absolute Nucleated RBC 0.000 Nucleated RBC % 0.0 Sodium 130 L Potassium 4.5 Chloride 95 L Carbon Dioxide 18 L Anion Gap 17 H BUN 31 H Creatinine 1.64 H Estim Creat Clear Calc 30 Estimated GFR 40 L Glucose 174 H POC Capillary Glucose 231 H Calcium 9.1 Total Bilirubin 1.3 AST 31 ALT 23 Alkaline Phosphatase 67 Total Protein 7.0 Albumin 4.4 Quality VTE Prophylaxis VTE prophylaxis: mechanical ordered and pharmacologic ordered
[2025-07-25 08:30] VITALS: BP 99/55; PULSE 91; RESP 14; TEMP 36.8; O2SAT 97
[2025-07-25] MEDS: INSULIN ASPART (*BKC) 100 UNITS/ML SUB-Q (09:02)
--- NOTE | 2025-07-25 10:58 | WPDNEUROLOGY ---
Neurology EEG Report General Information Date of Study: 07/25/25 TEST Electroencephalogram DIAGNOSIS changes in mental status, dementia, left CVA CONDITION OF RECORDING bedside recording EEG NUMBER [id number] CLINICAL HISTORY The patient is 85-year-old was found down with increased confusion. Four days prior to the spell he was found humming and dancing on his feet but not making much sense. Four-week about been sleeping more often and would only get up to get a drink go right back to bed. patient daughter also had witnessed a seizure-like activity on 1 occasion. Patient became somewhat combative during setup EEG DESCRIPTION During wakefulness the background activity consists of posterior dominant in theta range at 6 hertz with an amplitude of 15-30 microvolts. Anteriorly low amplitude mixed frequency activity was seen. There is no significant anteroposterior gradient. Hyperventilation or photic stimulation were not performed. Patient did not progress to stage 2 sleep. Patient was described as being obtunded and semi-cooperative during the recording. IMPRESSION This is abnormal EEG due to presence of moderate diffuse background slowing suggestive generalized cephalopathy, such as may be seen with bihemispheric lesion, metabolic encephalopathy or postictal state, however no focal or paroxysmal epileptiform abnormalities were seen.
[2025-07-25] MEDS: ASPIRIN 81 MG ENTERIC TABLET PO (11:11)
[2025-07-25] MEDS: CLOPIDOGREL BISULFATE 75 MG TABLET PO (11:11)
[2025-07-25] MEDS: ATORVASTATIN 40 MG TABLET 80 MG PO (11:11)
[2025-07-25] MEDS: MEMANTINE HCL XR 7 MG CAP PO (11:11)
[2025-07-25] MEDS: ENOXAPARIN 40 MG/0.4 ML SYRINGE SUB-Q (11:12)
[2025-07-25] MEDS: GABAPENTIN 100 MG CAPSULE PO (11:12)
--- NOTE | 2025-07-25 11:25 | PCOTNOTE ---
Patient unavailable due to staff in room working with patient.
--- NOTE | 2025-07-25 12:53 | P.PNNEUR_ITS ---
Progress Note: A&P Assessment and Plan (1) Cerebrovascular accident: Qualifiers: CVA mechanism: unspecified Qualified Code(s): I63.9 - Cerebral infarction, unspecified Code(s): I63.9 - Cerebral infarction, unspecified Status: Acute Assessment and Plan: MRI of the brain shows an acute infarct in the left pontine area. He is indeed very small and difficult even up and on the films with the radiologist feels there is a diffusion defect in this area. The patient should continue the aspirin, Plavix and Lipitor as discussed. Last LDL was 46. (2) Dementia: Code(s): F03.90 - Unspecified dementia, unspecified severity, without behavioral d isturbance, psychotic disturbance, mood disturbance, and anxiety Status: Acute Assessment and Plan: Patient has been started on Namenda XR 7 mg a day and this should be gradually increased up to 28 mg a in 3-4 weeks time. I shall be glad to follow him up in my office. (3) Seizure disorder: Code(s): G40.909 - Epilepsy, unspecified, not intractable, without status epilepticus Status: Acute Assessment and Plan: EEG shows diffuse background slowing however this is a nonspecific finding and can be seen with dementia or metabolic encephalopathy. The daughter thinks that he has had seizure-like spells twice when he came in. Given the benefit of doubt and the fact that today lack of focal or epileptic proximal epileptiform abnormality EEG does not rule out seizure disorder I will suggest to go ahead and start him on Depakote ER 500 mg at bedtime. Dose of this can be monitored depending upon the side effects and if he has any further spells suggestive of seizures. Once again this will require some follow-up in Neurology office. 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 I shall be glad to see him in my office in 2-3 months time. Subjective Date/time seen: 07/25/25 12:53 Interval history: The patient is 85-year-old with history of changes in mental status. He has had a stroke with the aphasia about a year ago and this time presented with difficulty speech and confusional state. He was found on the bedside. His daughter thinks that he might have had to seizure-like spells. An EEG was performed today which shows moderate diffuse background slowing 2. The daughter thinks that he has been declining in the last 2-3 weeks time. He has history of for diabetes mellitus, hypertension, hearing loss, cancer of prostate. Last LDL was 46. There is some question of drinking alcohol. CT angiogram of the head and neck shows No significant large vessel occlusion. The 3 mm size aneurysm noted in the left carotid artery. MRI of the brain shows acute infarct in the left side of the gokul, and also old lacunar infarct in the thalamic area. The patient is currently on aspirin, Plavix and Lipitor. Daughter thinks that it is difficult to take care of him at home and is wondering about the future care plan. Review of Systems Review of Systems: No additional new symptoms reported. ROS unobtainable: Yes unobtainable due to mental status Exam Narrative: patient is awake and alert and does respond to questions. He is moving all limbs. No involuntary movements seen. Objective Data Vital Signs Vital Signs: Vital Signs - 24 hr 07/24/25 13:29 07/24/25 20:00 07/24/25 22:00 Temperature 97.5 F L 97.1 F L Pulse Rate 81 91 Respiratory Rate 16 18 Blood Pressure 118/47 L 137/64 Pulse Oximetry 96 96 Oxygen Delivery Room Air 07/25/25 06:00 07/25/25 08:30 Temperature 97.1 F L 98.3 F Pulse Rate 99 91 Respiratory Rate 18 14 Blood Pressure 92/43 L 99/55 L Pulse Oximetry 94 97 Oxygen Delivery Intake/Output Intake/Output: Intake & Output 07/22/25 07/23/25 07/24/25 07/25/25 23:59 23:59 23:59 23:59 Intake Total 360 1500 1090 Balance 360 1500 1090 Meds/Results Medications: Active Medications Generic Name Dose Route Start Last Admin Trade Name Freq PRN Reason Stop Dose Admin Acetaminophen 650 mg 07/22/25 14:36 07/22/25 14:44 Acetaminophen 325 Mg Tablet PO 650 mg Q6H PRN Administration Mild Pain (1-5) Or Fever Hydrocodone Bitart/Acetaminophen 1 tab 07/23/25 07:05 Hydrocodone/Acetaminophen (*Crx) 5-325 Mg Tablet PO Q6H PRN Pain Rated 6 or Greater Amlodipine Besylate 10 mg 07/24/25 09:55 07/25/25 11:12 Amlodipine Besylate 10 Mg Tablet PO 10 mg DAILY DAVID Administration Amoxicillin/Clavulanate Potassium 1 tablet 07/23/25 09:00 07/25/25 11:11 Amoxicillin/Clavulanate K 875-125 Mg Tab PO 1 tablet Q12HR DAVID Administration Aspirin 81 mg 07/23/25 09:00 07/25/25 11:11 Aspirin 81 Mg Enteric Tablet PO 81 mg QAM DAVID Administration Atorvastatin Calcium 80 mg 07/23/25 09:00 07/25/25 11:11 Atorvastatin 40 Mg Tablet PO 80 mg DAILY DAVID Administration Clopidogrel Bisulfate 75 mg 07/23/25 09:00 07/25/25 11:11 Clopidogrel Bisulfate 75 Mg Tablet PO 75 mg QAM DAVID Administration Dextrose 12.5 gm 07/22/25 13:07 Dextrose 50% 25 Gm/50 Ml Syringe IV PUSH PRN PRN Hypoglycemia Protocol Enoxaparin Sodium 40 mg 07/23/25 09:00 07/25/25 11:12 Enoxaparin 40 Mg/0.4 Ml Syringe SUB-Q 40 mg DAILY DAVID Administration Gabapentin 100 mg 07/23/25 09:00 07/25/25 11:12 Gabapentin 100 Mg Capsule PO 100 mg DAILY DAVID Administration Glucagon 1 mg 07/22/25 13:07 Glucagon For Inj 1 Mg Vial IM PRN PRN Hypoglycemia Protocol Glucose 15 gm 07/22/25 13:07 Glucose Oral Gel 15 Gm Of Glucse In 37.5 Gm Tube PO PRN PRN Hypoglycemia Protocol Dextrose 1,000 mls @ 100 mls/hr 07/22/25 13:07 Dextrose 5% 1,000 Ml IVPB PRN PRN Hypoglycemia Protocol Insulin Aspart 2 - 5 units 07/22/25 17:00 07/25/25 12:17 Insulin Aspart (*Bkc) 100 Units/Ml SUB-Q Not Given TIDWM DAVID Protocol Insulin Glargine 6 units 07/23/25 21:00 07/24/25 20:21 Insulin Glargine (*Bkc) 100 Units/Ml SUB-Q 6 units HS DAVID Administration Memantine 7 mg 07/23/25 09:00 07/25/25 11:11 Memantine Hcl Xr 7 Mg Cap PO 7 mg DAILY DAVID Administration Perflutren Lipid Microsphere 0 ml 07/22/25 13:03 Perflutren Lipid Microspheres 1.5 Ml Vial Diluted To 10 Ml Total Volume IV PUSH 07/25/25 13:03 ONCE PRN adequate visualization Protocol Quetiapine Fumarate 12.5 mg 07/23/25 21:00 07/24/25 20:21 Quetiapine Fumarate 12.5 Mg Tablet PO 12.5 mg HS DAVID Administration Radiology Results: ITS Impressions Chest X-Ray 07/22/25 05:33 IMPRESSION: 1. No acute cardiopulmonary findings given portable technique. Cervical Spine CT 07/22/25 06:00 IMPRESSION: HEAD: 1. No acute intracranial findings. C-SPINE: 1. No acute fracture. Head CT 07/22/25 06:00 IMPRESSION: HEAD: 1. No acute intracranial findings. C-SPINE: 1. No acute fracture. Head/Neck CTA 07/22/25 06:33 IMPRESSION: CTA NECK: 1. Patent cervical arteries without acute abnormality. CTA HEAD: 1. No large vessel arterial occlusive disease or acute abnormality. 2. 3 mm aneurysm left carotid terminus. Recommend endovascular consultation and surveillance. Brain MRI 07/22/25 12:26 IMPRESSION: 1. Small acute infarct in the gokul on the left. 2. Old infarct involving the left frontoparietal region and left insula. Labs Labs: Laboratory Results - last 24 hr 07/24/25 07/24/25 07/25/25 17:08 20:10 04:17 WBC 10.5 H RBC 4.35 L Hgb 13.8 L Hct 41.5 L MCV 95.4 MCH 31.7 MCHC 33.3 RDW 13.2 Plt Count 126 L MPV 12.2 H Immature Gran % (Auto) 0.8 H Neut % (Auto) 78.0 H Lymph % (Auto) 11.2 L Emanuel % (Auto) 7.7 Eos % (Auto) 1.8 Baso % (Auto) 0.5 Lymph # (Auto) 1.18 Emanuel # (Auto) 0.8 H Eos # (Auto) 0.2 Baso # (Auto) 0.1 Abs Immat Gran (auto) 0.08 H Absolute Neuts (auto) 8.2 H Absolute Nucleated RBC 0.000 Nucleated RBC % 0.0 Sodium 130 L Potassium 4.5 Chloride 95 L Carbon Dioxide 18 L Anion Gap 17 H BUN 31 H Creatinine 1.64 H Estim Creat Clear Calc 30 Estimated GFR 40 L Glucose 174 H POC Capillary Glucose 170 H 231 H Calcium 9.1 Total Bilirubin 1.3 AST 31 ALT 23 Alkaline Phosphatase 67 Total Protein 7.0 Albumin 4.4 07/25/25 07/25/25 07:49 11:37 WBC RBC Hgb Hct MCV MCH MCHC RDW Plt Count MPV Immature Gran % (Auto) Neut % (Auto) Lymph % (Auto) Emanuel % (Auto) Eos % (Auto) Baso % (Auto) Lymph # (Auto) Emanuel # (Auto) Eos # (Auto) Baso # (Auto) Abs Immat Gran (auto) Absolute Neuts (auto) Absolute Nucleated RBC Nucleated RBC % Sodium Potassium Chloride Carbon Dioxide Anion Gap BUN Creatinine Estim Creat Clear Calc Estimated GFR Glucose POC Capillary Glucose 201 H 136 H Calcium Total Bilirubin AST ALT Alkaline Phosphatase Total Protein Albumin
--- NOTE | 2025-07-25 13:58 | PCOTNOTE ---
Patient sleeping upon entry. Wakes easily but is falling back to sleep/keeping eyes closed. Attempted to have patient get to edge of bed. Patient starts to move over but then says no. Max encouragement but do not feel safe to get patient up with patient having difficulty staying awake. Will continue plan of care.
[2025-07-25] MEDS: QUEtiapine FUMARATE 12.5 MG TABLET PO (20:32)
[2025-07-25] MEDS: INSULIN GLARGINE (*BKC) 100 UNITS/ML 6 UNITS SUB-Q (20:35)
[2025-07-25 21:20] VITALS: PULSE 79; O2SAT 96
[2025-07-25 22:00] VITALS: BP 95/43; PULSE 79; RESP 20; TEMP 36.8; O2SAT 96
[2025-07-26 05:14] LABS: Hematocrit 39.5 % (42.0-52.0); Hemoglobin 14.1 g/dL (14.0-18.0); Immature Granulocyte Percent A 0.6 % (0-0.5); Lymphocytes Absolute Auto 1.79 K/mm3 (0.9-3.2); Mean Corpuscular HGB Conc 35.7 g/dl (32-36); Mean Corpuscular Hemoglobin 32.5 pg (26-34); Mean Corpuscular Volume 91.0 fl (80-100); Nucleated Red Blood Cells Absolute Auto 0.000 K/mm3 (0.0-0.012); Nucleated Red Blood Cells Perc 0.0 % (0.0-0.2); Platelet Count Result 137 k/mm3 (150-375); Red Blood Count 4.34 M/mm3 (4.6-6.20); White Blood Count 7.1 K/mm3 (4.5-10.0)
[2025-07-26 05:27] LABS: Alanine Aminotransferase 26 U/L (6-50); Albumin Level 3.6 g/dL (3.5-5.1); Alkaline Phosphatase 70 U/L (38-126); Anion Gap 5 mmol/L (4-12); Aspartate Amino Transferase 26 U/L (17-59); Bilirubin,Total 0.8 mg/dL (0.2-1.3); Blood Urea Nitrogen 28 mg/dL (9-20); Calcium 8.7 mg/dL (8.4-10.2); Carbon Dioxide 25 mmol/L (22-30); Chloride 98 mmol/L (98-107); Estimated CRCL calculation 46 ml/min; Estimated Glomerular Filt Rate > 60; Glucose 119 mg/dL (65-110); Potassium 3.5 mmol/L (3.4-5.0); Sodium 128 mmol/L (137-145); Total Protein 5.9 g/dL (6.3-8.2)
[2025-07-26 06:00] VITALS: BP 101/53; PULSE 75; RESP 18; TEMP 36.9; O2SAT 97
--- NOTE | 2025-07-26 06:59 | P.PNIM_ITS ---
Progress Note: A&P Assessment and Plan (1) Cerebrovascular accident: Qualifiers: CVA mechanism: unspecified Qualified Code(s): I63.9 - Cerebral infarction, unspecified Code(s): I63.9 - Cerebral infarction, unspecified Status: Acute Assessment and Plan: * Patient found down at home. MRI showing small left gokul CVA. * Continue Plavix, ASA and Lipitor. * Echo noted and no change from Echo last year with EF 65-70%, no shunt, grade I diastolic dysfunction * PT/OT and ST to evaluate and treat * EEG: Abnormal EEG due to presence of moderate diffuse background slowing suggestive generalized cephalopathy, such as may be seen with bihemispheric lesion, metabolic encephalopathy or postictal state, however no focal or paroxysmal epileptiform abnormalities were seen. * Neurology consulted, appreciate further recommendations * Continue Namenda * gradually increase up to 28 mg a in 3-4 weeks time * PT/OT recommending further rehab - has been accepted at [facility] (2) Altered mental status: Code(s): R41.82 - Altered mental status, unspecified Status: Acute Assessment and Plan: * Probably related to acute CVA. Does not explain the general decline patient has been experiencing for the past 2-3 weeks. * VitD 39.5. TSH normal. B12/folate normal. * Consider occult seizures vs worsening dementia. * Namenda started. EEG ordered. Add low dose Seroquel for agitation. * See above (3) Seizure disorder: Code(s): G40.909 - Epilepsy, unspecified, not intractable, without status epilepticus Status: Acute Assessment and Plan: * EEG: Abnormal EEG due to presence of moderate diffuse background slowing sugg estive generalized cephalopathy, such as may be seen with bihemispheric lesion, metabolic encephalopathy or postictal state, however no focal or paroxysmal epileptiform abnormalities were seen * Neurology to start Depakot ER 500mg @ bedtime * Follow up in the outpt setting for monitoring (4) Hypertension: Qualifiers: Hypertension type: unspecified Qualified Code(s): I10 - Essential (primary) hypertension Code(s): I10 - Essential (primary) hypertension Status: Acute Assessment and Plan: * Blood pressure mildly elevated. * Hold off on resuming anti-HTN to allow for permissive HTN but will resume tomorrow. * Follow for now * Amlodipine home dose of 10mg daily started again (5) Type 2 diabetes mellitus: Qualifiers: Diabetes mellitus complication detail: with unspecified neuropathy Diabetes mellitus complication status: with neurologic complications Diabetes mellitus retirement insulin use: with retirement use Qualified Code(s): E11.40 - Type 2 diabetes mellitus with diabetic neuropathy, unspecified; Z79.4 - [facility] (current) use of insulin Code(s): E11.9 - Type 2 diabetes mellitus without complications Status: Acute Assessment and Plan: * A1c 6.8%. The patient's blood glucose was 229 on admission probably stress response. * The patient's blood glucose was reviewed on 07/23 * Glucose remains poorly controlled. * Continue AccuCheks covering with sliding scale. Hypoglycemia protocol available as needed. * Add Lantus at night. 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 worsening dementia? * Namenda started by neurology - gradually increase up to 28 mg in 3-4 weeks time * Seroquel started for PO daily use for agitation (7) Hyponatremia: Code(s): E87.1 - Hypo-osmolality and hyponatremia Status: Acute Assessment and Plan: * Over the course of hospitalizations: Na 135 -> 130 -> 128 on 07/26 * Could be secondary to Valproate, Seroquel * Supplement with Na tablets Plan DVT Prophylaxis - lovenox Code status - DNR Subjective Date/time seen: 07/26/25 06:59 Interval history: 85yo male with hx of CVA and resulting aphasia/dysphagia, DM, HTN and probably dementia who was brought in after being found down and with increasing confusion. 07/26/2025 Patient resting comfortably in bed at time of examination. Remains unable to relay an accurate history. Started on Depakote given history provided by daughter and lack of focal or epileptic proximal epileptiform abnormality EEG does not rule out seizure disorder. Will continue to monitor along with Neurology. PT/OT recommending SNF - will work with CC regarding placement. Pt likely able to be discharged once facility has accepted him for placement. Review of Systems Review of Systems: ROS unobtainable: Yes unobtainable due to mental status Exam Narrative: AF97.0 119/56 77 18 97% ra Gen - NARD Chest - clear anteriorly. nml RR CV - RRR S1/S2. Tele showing no significant dysrhythmias (tele currently off due to causing agitation) Abd - soft, NT/ND. Ext - no pedal edema. Neuro - patient more alert. garbled and nonsensical speech. Psych - follows commands at times. Skin - warm and dry. Const: General: comfortable and no acute distress HENMT: Face/Nose/Sinus: Normal nares present Mouth: Yes moist mucous mem branes Eyes: General: appearance normal, both eyes and all related structures Sclera: sclerae normal Neck: Neck: supple Resp: Effort & Inspection: normal respiratory effort Auscultation: clear to auscultation bilaterally Cardio: Rate: regular rate Rhythm: regular rhythm Skin: General skin exam: normal color and no rashes or lesions noted Neuro: Motor exam (neuro): Normal motor muscle tone present throughout Other: garbled and nonsensical speech. Extrem: General: normal to inspection Psych: Other: follows commands at times, calm Objective Data Vital Signs Vital Signs: Vital Signs - 24 hr 07/25/25 08:30 07/25/25 08:30 07/25/25 20:28 Temperature 98.3 F Pulse Rate 91 Respiratory Rate 14 Blood Pressure 99/55 L Pulse Oximetry 97 Oxygen Delivery Room Air Room Air Fraction of Inspired Oxygen 07/25/25 21:20 07/25/25 22:00 07/26/25 06:00 Temperature 98.2 F 98.4 F Pulse Rate 79 79 75 Respiratory Rate 20 18 Blood Pressure 95/43 L 101/53 L Pulse Oximetry 96 96 97 Oxygen Delivery Room Air Fraction of Inspired Oxygen 21 Intake/Output Intake/Output: Intake & Output 07/23/25 07/24/25 07/25/25 07/26/25 23:59 23:59 23:59 23:59 Intake Total 1500 1090 1120 Balance 1500 1090 1120 Meds/Results Medications: Active Medications Generic Name Dose Route Start Last Admin Trade Name Freq PRN Reason Stop Dose Admin Acetaminophen 650 mg 07/22/25 14:36 07/22/25 14:44 Acetaminophen 325 Mg Tablet PO 650 mg Q6H PRN Administration Mild Pain (1-5) Or Fever Hydrocodone Bitart/Acetaminophen 1 tab 07/23/25 07:05 Hydrocodone/Acetaminophen (*Crx) 5-325 Mg Tablet PO Q6H PRN Pain Rated 6 or Greater Amlodipine Besylate 10 mg 07/24/25 09:55 07/25/25 11:12 Amlodipine Besylate 10 Mg Tablet PO 10 mg DAILY DAVID Administration Amoxicillin/Clavulanate Potassium 1 tablet 07/23/25 09:00 07/25/25 20:32 Amoxicillin/Clavulanate K 875-125 Mg Tab PO 1 tablet Q12HR DAVID Administration Aspirin 81 mg 07/23/25 09:00 07/25/25 11:11 Aspirin 81 Mg Enteric Tablet PO 81 mg QAM DAVID Administration Atorvastatin Calcium 80 mg 07/23/25 09:00 07/25/25 11:11 Atorvastatin 40 Mg Tablet PO 80 mg DAILY DAVID Administration Clopidogrel Bisulfate 75 mg 07/23/25 09:00 07/25/25 11:11 Clopidogrel Bisulfate 75 Mg Tablet PO 75 mg QAM DAVID Administration Dextrose 12.5 gm 07/22/25 13:07 Dextrose 50% 25 Gm/50 Ml Syringe IV PUSH PRN PRN Hypoglycemia Protocol Divalproex Sodium 500 mg 07/26/25 08:00 Divalproex Sodium Er 500 Mg Tab.24h PO DAILY@0800 [facility] Enoxaparin Sodium 40 mg 07/23/25 09:00 07/25/25 11:12 Enoxaparin 40 Mg/0.4 Ml Syringe SUB-Q 40 mg DAILY DAVID Administration Gabapentin 100 mg 07/23/25 09:00 07/25/25 11:12 Gabapentin 100 Mg Capsule PO 100 mg DAILY DAVID Administration Glucagon 1 mg 07/22/25 13:07 Glucagon For Inj 1 Mg Vial IM PRN PRN Hypoglycemia Protocol Glucose 15 gm 07/22/25 13:07 Glucose Oral Gel 15 Gm Of Glucse In 37.5 Gm Tube PO PRN PRN Hypoglycemia Protocol Dextrose 1,000 mls @ 100 mls/hr 07/22/25 13:07 Dextrose 5% 1,000 Ml IVPB PRN PRN Hypoglycemia Protocol Insulin Aspart 2 - 5 units 07/22/25 17:00 07/25/25 16:55 Insulin Aspart (*Bkc) 100 Units/Ml SUB-Q Not Given TIDWM [facility] Protocol Insulin Glargine 6 units 07/23/25 21:00 07/25/25 20:35 Insulin Glargine (*Bkc) 100 Units/Ml SUB-Q 6 units HS DAVID Administration Memantine 7 mg 07/23/25 09:00 07/25/25 11:11 Memantine Hcl Xr 7 Mg Cap PO 7 mg DAILY DAVID Administration Quetiapine Fumarate 12.5 mg 07/23/25 21:00 07/25/25 20:32 Quetiapine Fumarate 12.5 Mg Tablet PO 12.5 mg HS DAVID Administration Radiology Results: ITS Impressions Chest X-Ray 07/22/25 05:33 IMPRESSION: 1. No acute cardiopulmonary findings given portable technique. Cervical Spine CT 07/22/25 06:00 IMPRESSION: HEAD: 1. No acute intracranial findings. C-SPINE: 1. No acute fracture. Head CT 07/22/25 06:00 IMPRESSION: HEAD: 1. No acute intracranial findings. C-SPINE: 1. No acute fracture. Head/Neck CTA 07/22/25 06:33 IMPRESSION: CTA NECK: 1. Patent cervical arteries without acute abnormality. CTA HEAD: 1. No large vessel arterial occlusive disease or acute abnormality. 2. 3 mm aneurysm left carotid terminus. Recommend endovascular consultation and surveillance. Brain MRI 07/22/25 12:26 IMPRESSION: 1. Small acute infarct in the gokul on the left. 2. Old infarct involving the left frontoparietal region and left insula. Labs Labs: Laboratory Results - last 24 hr 07/25/25 07/25/25 07/25/25 07:49 11:37 16:16 WBC RBC Hgb Hct MCV MCH MCHC RDW Plt Count MPV Immature Gran % (Auto) Neut % (Auto) Lymph % (Auto) Bertie % (Auto) Eos % (Auto) Baso % (Auto) Lymph # (Auto) Bertie # (Auto) Eos # (Auto) Baso # (Auto) Abs Immat Gran (auto) Absolute Neuts (auto) Absolute Nucleated RBC Nucleated RBC % Sodium Potassium Chloride Carbon Dioxide Anion Gap BUN Creatinine Estim Creat Clear Calc Estimated GFR Glucose POC Capillary Glucose 201 H 136 H 156 H Calcium Total Bilirubin AST ALT Alkaline Phosphatase Total Protein Albumin 07/25/25 07/26/25 20:18 04:44 WBC 7.1 RBC 4.34 L Hgb 14.1 Hct 39.5 L MCV 91.0 MCH 32.5 MCHC 35.7 RDW 13.1 Plt Count 137 L MPV 12.1 H Immature Gran % (Auto) 0.6 H Neut % (Auto) 61.4 Lymph % (Auto) 25.2 Bertie % (Auto) 7.3 Eos % (Auto) 5.1 H Baso % (Auto) 0.4 Lymph # (Auto) 1.79 Bertie # (Auto) 0.5 Eos # (Auto) 0.4 H Baso # (Auto) 0.0 Abs Immat Gran (auto) 0.04 H Absolute Neuts (auto) 4.4 Absolute Nucleated RBC 0.000 Nucleated RBC % 0.0 Sodium 128 L Potassium 3.5 Chloride 98 Carbon Dioxide 25 Anion Gap 5 BUN 28 H Creatinine 1.03 Estim Creat Clear Calc 46 Estimated GFR > 60 Glucose 119 H POC Capillary Glucose 123 H Calcium 8.7 Total Bilirubin 0.8 AST 26 ALT 26 Alkaline Phosphatase 70 Total Protein 5.9 L Albumin 3.6 Quality VTE Prophylaxis VTE prophylaxis: mechanical ordered and pharmacologic ordered
[2025-07-26 09:15] VITALS: O2SAT 98
[2025-07-26 09:39] VITALS: BP 119/56; PULSE 77; RESP 15; O2SAT 98
[2025-07-26] MEDS: GABAPENTIN 100 MG CAPSULE PO (09:41)
[2025-07-26] MEDS: SODIUM CHLORIDE 500 MG TABLET PO ×2 (09:41→17:13)
[2025-07-26] MEDS: ASPIRIN 81 MG ENTERIC TABLET PO (09:41)
[2025-07-26] MEDS: ATORVASTATIN 40 MG TABLET 80 MG PO (09:41)
[2025-07-26] MEDS: DIVALPROEX SODIUM ER 500 MG TAB.24H PO (09:41)
[2025-07-26] MEDS: ENOXAPARIN 40 MG/0.4 ML SYRINGE SUB-Q (09:41)
[2025-07-26] MEDS: CLOPIDOGREL BISULFATE 75 MG TABLET PO (09:41)
[2025-07-26] MEDS: MEMANTINE HCL XR 7 MG CAP PO (09:41)
[2025-07-26 13:30] VITALS: BP 99/50; PULSE 89; RESP 16; TEMP 36.4; O2SAT 99
[2025-07-26 20:00] VITALS: PULSE 85; RESP 18; O2SAT 96
[2025-07-26 20:19] VITALS: BP 106/67; PULSE 85; RESP 18; TEMP 36.7; O2SAT 96
[2025-07-26] MEDS: QUEtiapine FUMARATE 12.5 MG TABLET PO (21:46)
[2025-07-26] MEDS: INSULIN GLARGINE (*BKC) 100 UNITS/ML 6 UNITS SUB-Q (21:46)
[2025-07-27 03:50] VITALS: BP 120/49; PULSE 74; RESP 18; TEMP 36.6; O2SAT 95
[2025-07-27 05:32] LABS: Hematocrit 39.3 % (42.0-52.0); Hemoglobin 13.6 g/dL (14.0-18.0); Immature Granulocyte Percent A 0.7 % (0-0.5); Lymphocytes Absolute Auto 2.71 K/mm3 (0.9-3.2); Mean Corpuscular HGB Conc 34.6 g/dl (32-36); Mean Corpuscular Hemoglobin 31.6 pg (26-34); Mean Corpuscular Volume 91.2 fl (80-100); Nucleated Red Blood Cells Absolute Auto 0.000 K/mm3 (0.0-0.012); Nucleated Red Blood Cells Perc 0.0 % (0.0-0.2); Platelet Count Result 141 k/mm3 (150-375); Red Blood Count 4.31 M/mm3 (4.6-6.20); White Blood Count 7.4 K/mm3 (4.5-10.0)
[2025-07-27 05:48] LABS: Alanine Aminotransferase 32 U/L (6-50); Albumin Level 3.6 g/dL (3.5-5.1); Alkaline Phosphatase 70 U/L (38-126); Anion Gap 6 mmol/L (4-12); Aspartate Amino Transferase 28 U/L (17-59); Bilirubin,Total 0.7 mg/dL (0.2-1.3); Blood Urea Nitrogen 22 mg/dL (9-20); Calcium 8.7 mg/dL (8.4-10.2); Carbon Dioxide 28 mmol/L (22-30); Chloride 100 mmol/L (98-107); Estimated CRCL calculation 55 ml/min; Estimated Glomerular Filt Rate > 60; Glucose 125 mg/dL (65-110); Potassium 3.4 mmol/L (3.4-5.0); Sodium 134 mmol/L (137-145); Total Protein 6.0 g/dL (6.3-8.2)
[2025-07-27] MEDS: ATORVASTATIN 40 MG TABLET 80 MG PO (08:49)
[2025-07-27] MEDS: ASPIRIN 81 MG ENTERIC TABLET PO (08:49)
[2025-07-27] MEDS: MEMANTINE HCL XR 7 MG CAP PO (08:49)
[2025-07-27] MEDS: CLOPIDOGREL BISULFATE 75 MG TABLET PO (08:49)
[2025-07-27] MEDS: GABAPENTIN 100 MG CAPSULE PO (08:49)
[2025-07-27] MEDS: SODIUM CHLORIDE 500 MG TABLET PO (08:49)
[2025-07-27] MEDS: DIVALPROEX SODIUM ER 500 MG TAB.24H PO (08:49)
[2025-07-27] MEDS: ENOXAPARIN 40 MG/0.4 ML SYRINGE SUB-Q (08:50)
--- NOTE | 2025-07-27 11:11 | P.DS_ITS ---
DS: Admitting Diagnosis Discharge Date 07/27/2025 Admitting Diagnosis AMS DS: Discharge Diagnosis Discharge Diagnosis (1) Cerebrovascular accident: Qualifiers: CVA mechanism: unspecified Qualified Code(s): I63.9 - Cerebral infarction, unspecified Code(s): I63.9 - Cerebral infarction, unspecified Status: Acute Assessment and Plan: * Patient found down at home. MRI showing small left gokul CVA. * Continue Plavix, ASA and Lipitor. * Echo noted and no change from Echo last year with EF 65-70%, no shunt, grade I diastolic dysfunction * PT/OT and ST to evaluate and treat * EEG: Abnormal EEG due to presence of moderate diffuse background slowing suggestive generalized cephalopathy, such as may be seen with bihemispheric lesion, metabolic encephalopathy or postictal state, however no focal or paroxysmal epileptiform abnormalities were seen. * Neurology consulted, appreciate further recommendations * Continue Namenda * gradually increase up to 28 mg a in 3-4 weeks time * PT/OT recommending further rehab - has been accepted at [facility] (2) Altered mental status: Code(s): R41.82 - Altered mental status, unspecified Status: Acute Assessment and Plan: * Probably related to acute CVA. Does not explain the general decline patient has been experiencing for the past 2-3 weeks. * VitD 39.5. TSH normal. B12/folate normal. * Consider occult seizures vs worsening dementia. * Namenda started. EEG ordered. Add low dose Seroquel for agitation. * See above (3) Seizure disorder: Code(s): G40.909 - Epilepsy, unspecified, not intractable, without status epilepticus Status: Acute Assessment and Plan: * EEG: Abnormal EEG due to presence of moderate diffuse background slowing yung ggestive generalized cephalopathy, such as may be seen with bihemispheric lesion, metabolic encephalopathy or postictal state, however no focal or paroxysmal epileptiform abnormalities were seen * Neurology to start Depakot ER 500mg @ bedtime * Follow up in the outpt setting for monitoring (4) Hypertension: Qualifiers: Hypertension type: unspecified Qualified Code(s): I10 - Essential (primary) hypertension Code(s): I10 - Essential (primary) hypertension Status: Acute Assessment and Plan: * Blood pressure mildly elevated. * Hold off on resuming anti-HTN to allow for permissive HTN but will resume tomorrow. * Follow for now * Amlodipine home dose of 10mg daily started again (5) Type 2 diabetes mellitus: Qualifiers: Diabetes mellitus complication detail: with unspecified neuropathy Diabetes mellitus complication status: with neurologic complications Diabetes mellitus intermediate insulin use: with intermediate use Qualified Code(s): E11.40 - Type 2 diabetes mellitus with diabetic neuropathy, unspecified; Z79.4 - performance manager (current) use of insulin Code(s): E11.9 - Type 2 diabetes mellitus without complications Status: Acute Assessment and Plan: * A1c 6.8%. The patient's blood glucose was 229 on admission probably stress response. * The patient's blood glucose was reviewed on 07/27 * Glucose remains poorly controlled. * Continue AccuCheks covering with sliding scale. Hypoglycemia protocol available as needed. * Add Lantus at night. 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 * Not sure the etiology of the more rapid regional climate change analyst the past 2-3 weeks: sz? worsening dementia? * Namenda started by neurology - gradually increase up to 28 mg in 3-4 weeks time * Seroquel started for PO daily use for agitation (7) Hyponatremia: Code(s): E87.1 - Hypo-osmolality and hyponatremia Status: Acute Assessment and Plan: * Over the course of hospitalizations: Na 135 -> 130 -> 128 on 07/26 * Could be secondary to Valproate, Seroquel * Supplement with Na tablets 07/27 Na [address] [facility] DS: Summary Hospital Course Reason for hospitalization: [facility] Hospital Course: Pt is an 85-year-old male presenting to the ED on 07/22 for altered mental status. On initial evaluation patient was in no acute distress afebrile, hemodynamic stable. Differentials include but are not limited to: CVA, TIA, ICH, meningitis, UTI, cancer, drug intoxication, hypoglycemia, electrolyte abnormality Notable exam findings: A/O x1. No focal deficits. Heart and lungs clear. Abdomen soft and nontender. Notable lab findings: Mild leukocytosis at 11.4. Mild anemia of 13. UA without evidence of UTI. Notable imaging findings: CT head and C-spine without acute abnormalities. CTA head and neck showed some moderate stenoses of the bilateral carotid arteries but no acute blockages. Chest x-ray showed no acute process. In the ED, patient was hemodynamically stable. WBC 11.4K, Hgb 13 and plt count low at 109K. Sodium 135, BUN 22 and glucose 229 o/w CMP normal. Troponin , total CK ,lactic normal and TSH normal. UA not consistent with UTI. EKG showing no acute ST or T wave changes. CXR was clear. Cervical spine showing no fracture. Head CT showing no acute intracranial process. 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 Brain MRI after admission shows a small acute infarct left gokul. He was given Plavix and ASA. Pt admitted inpatient with neurologic evaluation. Dr. Cobos, neurology, recommends aspirin and his regular Plavix in ED. 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 He lives with his son and [id number]. Both of them were present the time of this evaluation along with under the sun. Since the stroke in March 2024 he has been through speech therapy but his speech did not return back to normal. He is also hard of hearing and he did not bring the hearing aid here. Despite the hearing aid he still seems to be confused to the family members several times outside just being aphasic to some extent. He is able to walk around. He did not have any incontinence of urine or blood around the mouth. While being brought to the hospital he had 2 spells where he has some stiffening of the limbs. There is a fluctuation in his mental status time to time. About a week ago he had a dental procedure done on several teeth. No recent febrile illness or trauma reported. He has not had any passing out spell or seizure like spells. He did not have any paralysis on either side of the body. He did identify son and told me his 1st name but he could not tell me his age however his son says that today even on a good day he could not tell his age. The patient was taking Plavix and 80 mg of atorvastatin after the stroke last year. Previously is LDL around 46. There is also history of diabetes mellitus, hypertension and carcinoma of prostate. He used to drink alcohol up to 6 about his a day but he no longer drinks. In the emergency room he had a CT scan of brain and CT angiogram of the head and neck which did not show any significant abnormality. There is no large vessel occlusion. Radiologist reported a 3 mm size and at the left carotid terminus. No significant abnormalities were noted in the CT angiogram of the head or neck outside this finding. He did have a CT angiogram of the head and neck done in March of 2024 when he was described as having 60% narrowing of the right internal carotid artery and 40% in the left ICA. There is no history of myocardial infarction or major head trauma. Prior history of seizures. Outside the speech problem the family does feel that he has progressive decline in the memory. While inpt, pt with agitation episodes, Seroquel nightly has started to continue to keep the pt safe, continued upon discharge. Echo performed and yielded no change from Echo last year with EF 65-70%, no shunt, grade I diastolic dysfunction. EEG also performed and neuro reports that it was an abnormal results due to presence of moderate diffuse background slowing suggestive generalized cephalopathy, such as may be seen with bihemispheric lesion, metabolic encephalopathy or postictal state, however no focal or paroxysmal epileptiform abnormalities were seen; the choice of Depakote ER 500mg at bedtime was started due to not being able to rule out seizure disorder. Namenda, Seroquel, and Depakote to be continued at discharge with close neurology follow- up. Pt worked with PT/OT/ST while inpatient and is being discharged to [facility]. Status at Discharge Overall status at discharge: patient is progressing back to baseline Time Spent with Patient Time attestation: Total time spent providing and/or coordinating discharge services: 45 Exam Const: General: comfortable and no acute distress HENMT: Face/Nose/Sinus: Normal nares present Mouth: Yes moist mucous membranes Eyes: General: appearance normal, both eyes and all related structures Sclera: sclerae normal Neck: Neck: supple Resp: Effort & Inspection: normal respiratory effort Auscultation: clear to auscultation bilaterally Cardio: Rate: regular rate Rhythm: regular rhythm GI: Inspection: non-distended GI Palp: Yes Soft to palpation Auscultation: normal bowel sounds Skin: General skin exam: normal color and no rashes or lesions noted Neuro: Motor exam (neuro): Normal motor muscle tone present throughout Other: garbled and nonsensical speech. Extrem: General: normal to inspection Psych: Other: follows commands at times, calm DS: Data Data Completed and Pending Completed studies during hospitalization: labs, urine, imaging Labs on day of discharge: Labs from last 24 hours 07/27/25 07/27/25 07/26/25 08:26 04:46 20:24 WBC 7.4 RBC 4.31 L Hgb 13.6 L Hct 39.3 L MCV 91.2 MCH 31.6 MCHC 34.6 RDW 13.0 Plt Count 141 L MPV 12.2 H Immature Gran % (Auto) 0.7 H Neut % (Auto) 48.7 Lymph % (Auto) 36.6 Darke % (Auto) 8.1 Eos % (Auto) 5.5 H Baso % (Auto) 0.4 Lymph # (Auto) 2.71 Darke # (Auto) 0.6 Eos # (Auto) 0.4 H Baso # (Auto) 0.0 Abs Immat Gran (auto) 0.05 H Absolute Neuts (auto) 3.6 Absolute Nucleated RBC 0.000 Nucleated RBC % 0.0 Sodium 134 L Potassium 3.4 Chloride 100 Carbon Dioxide 28 Anion Gap 6 BUN 22 H Creatinine 0.85 Estim Creat Clear Calc 55 Estimated GFR > 60 Glucose 125 H POC Capillary Glucose 124 H 190 H Calcium 8.7 Total Bilirubin 0.7 AST 28 ALT 32 Alkaline Phosphatase 70 Total Protein 6.0 L Albumin 3.6 07/26/25 07/26/25 16:46 11:50 WBC RBC Hgb Hct MCV MCH MCHC RDW Plt Count MPV Immature Gran % (Auto) Neut % (Auto) Lymph % (Auto) Darke % (Auto) Eos % (Auto) Baso % (Auto) Lymph # (Auto) Darke # (Auto) Eos # (Auto) Baso # (Auto) Abs Immat Gran (auto) Absolute Neuts (auto) Absolute Nucleated RBC Nucleated RBC % Sodium Potassium Chloride Carbon Dioxide Anion Gap BUN Creatinine Estim Creat Clear Calc Estimated GFR Glucose POC Capillary Glucose 164 H 168 H Calcium Total Bilirubin AST ALT Alkaline Phosphatase Total Protein Albumin Discharge Plan Discharge Attending physician on discharge: Vincent Marie Consulting providers: Jose Manuel Cobos; Missy Barrera; Manolo Rodas Discharging Clinician: Missy Barrera Anticipated Discharge Date/Time: 07/27/25 11:12 Patient Disposition: SNF Activity: as tolerated Diet: as tolerated Discharge Instructions: 1. Follow up with the neurology team, their contact information is attached. -They have recommended for you to continue to take Namenda XR 7mg daily with a gradual increase over the next 3-4 weeks in which they will manage. -They have also recommended to continue taking the aspirin, Plavix and Lipitor as discussed. -Seroquel at night time has also been added to your medication regimen at night time for agitation. -Lastly, they have also recommended continue to take Depakote ER 500 mg at bedtime. Dose of this can be monitored depending upon the side effects and if he has any further spells suggestive of seizures. 2. Continue to take the sodium chloride tablets daily for your mildly low sodium. You can follow-up with your primary care provider for maintenance of these with lab work. Continue to check your blood pressure and blood sugar at home if applicable. Keep your scheduled appts with your primary care provider and any specialist that you may see. Return to the emergency department if you develop sudden shortness of breath, chest pain, a fever of greater than 101.5, or nausea, vomiting, abd pain, or diarrhea that does not go away. Follow-up with your primary care provider within 1-2 weeks, they will want to be updated on your inpatient stay in the hospital. Thank you for choosing [facility] for your healthcare needs. Patient Instructions: Quetiapine (By mouth) Patient Language: Divehi Stand Alone Forms: General Discharge Information Follow-up/Referrals: Jose Manuel Cobos MD [Physician, Neurology] - 1 Week Discharge Medications: New aspirin 81 mg Tablet,Delayed Release (Dr/Ec) 81 mg PO QAM Qty: 90 1RF sodium chloride 1,000 mg tablet,soluble 500 mg PO DAILY Qty: 90 1RF quetiapine 25 mg tablet 12.5 mg PO HS Qty: 30 0RF Continued hydrocodone-acetaminophen 5-325 mg tablet 1 tablet PO Q6H PRN (Reason: pain) atorvastatin 80 mg tablet 80 mg PO DAILY clopidogrel 75 mg tablet 75 mg PO DAILY (DME) OneTouch Ultra Test Strip MISCELLANEOUS amlodipine 10 mg tablet 10 mg PO DAILY gabapentin 100 mg capsule 100 mg PO DAILY metformin 500 mg tablet extended release 24 hr 500 mg PO BID insulin degludec [Tresiba FlexTouch U-200] 200 unit/mL (3 mL) insulin pen 15 unit subcut HS PRN (Reason: Hyperglycemia) aspirin 81 mg capsule 81 mg PO DAILY Qty: 30 0RF Discontinued amoxicillin-pot clavulanate 875-125 mg tablet 1 tablet PO Q12H Date of admission: 07/22/25 07:20 Primary Care Provider: Livan,Jose Juan Lowry Admitting Provider: Reji Shannon Attending physician on admission: Reji Shannon Condition: Stable Quality VTE Prophylaxis VTE prophylaxis: mechanical ordered and pharmacologic ordered
== END 2025-07-27 11:50 | DRG 65 ==
LOC: ANHED 07:27 → ANH2MED 07:55
PROVIDERS: Psychiatry & Neurology Neurology; Admitting Provider Internal Medicine; Emergency Provider Student in an Organized Health Care Education/Training Program; PCP Family Medicine
DX: I63.89 Other cerebral infarction (principal); E87.1 Hypo-osmolality and hyponatremia; T43.595A Adverse effect of other antipsychotics and neuroleptics, initial encounter; T42.6X5A Adverse effect of other antiepileptic and sedative-hypnotic drugs, initial encounter; I69.320 Aphasia following cerebral infarction; R13.10 Dysphagia, unspecified; E78.5 Hyperlipidemia, unspecified; I11.9 Hypertensive heart disease without heart failure; I51.89 Other ill-defined heart diseases; F01.50 Vascular dementia, unspecified severity, without behavioral disturbance, psychotic disturbance, mood disturbance, and anxiety; G40.909 Epilepsy, unspecified, not intractable, without status epilepticus; H91.90 Unspecified hearing loss, unspecified ear; R45.1 Restlessness and agitation; W18.30XA Fall on same level, unspecified, initial encounter; F10.91 Alcohol use, unspecified, in remission; E11.65 Type 2 diabetes mellitus with hyperglycemia; Z66 Do not resuscitate; Z74.1 Need for assistance with personal care; Z90.79 Acquired absence of other genital organ(s); Z85.46 Personal history of malignant neoplasm of prostate; Z79.891 Long term (current) use of opiate analgesic; Z79.2 Long term (current) use of antibiotics; Z79.4 Long term (current) use of insulin; Z79.02 Long term (current) use of antithrombotics/antiplatelets; Z87.891 Personal history of nicotine dependence; Z98.818 Other dental procedure status; Z79.84 Long term (current) use of oral hypoglycemic drugs
CPT/HCPCS: 36415; 70450; 70496; 70498; 70551; 71045; 72125; 80053; 80061; 80143; 80179; 80307; 81001; 82077; 82306; 82550; 82607; 82746; 82948; 83036; 83605; 83921; 84443; 84484; 85025; 85055; 85610; 92507; 92523; 92610; 93005; 93306; 95816; 96375; 97110; 97116; 97162; 97166; 97530; 97535; 99285; A9270; J1650; J1815; J2359; Q9967